=== PATIENT | male | born 1950 | race Hispanic/Latino ===

== ENCOUNTER → 2017-10-27 | Outpatient (CLI) | payer OTHER ==
[2017-10-27 09:37] LABS: APPEARANCE,URINE Clear (CLEAR); BILIRUBIN,URINE Negative (NEGATIVE); COLOR,URINE Yellow (YELLOW); GLUCOSE, URINE (UA) Negative (NEGATIVE); KETONES,URINE Negative (NEGATIVE); LEUKOCYTE ESTERASE ,URINE Negative (NEGATIVE); NITRATE,URINE Negative (NEGATIVE); OCCULT BLOOD,URINE Trace (NEGATIVE); PH,URINE 5.5 (5.0-8.0); PROTEIN,URINE Negative (NEGATIVE); UROBILINOGEN,URINE 0.2 mg/dL (0.2-1.0)
[2017-10-27 09:44] LABS: BACTERIA,URINE Rare /HPF (None Seen); RBC,URINE 0-1 /HPF (0-1); SQUAMOUS EPITHELIAL CELL,UR Rare /HPF (0-2); WBC,URINE 0-1 /HPF (0-1)
[2017-10-27 09:50] LABS: ALBUMIN 3.8 g/dL (3.5-5.0); BILIRUBIN,TOTAL 0.7 mg/dL (0.2-1.0); CREATININE 1.5 mg/dL (0.5-1.5); TOTAL PROTEIN, SERUM 7.8 g/dL (6.0-8.3)
== END | disposition home or self-care (01) ==
LOC: RAH 08:01
PROVIDERS: ATTEND Orthopaedic Surgery
DX: I25.9 Chronic ischemic heart disease, unspecified (principal); E11.51 Type 2 diabetes mellitus with diabetic peripheral angiopathy without gangrene; I10 Essential (primary) hypertension; E78.5 Hyperlipidemia, unspecified; Z87.891 Personal history of nicotine dependence
CPT/HCPCS: 36415; 80053; 81001; 82043; 93306; 93922

== ENCOUNTER 2018-06-12 20:22 | Inpatient (IN) | payer OTHER ==
[~2018-06-12] VITALS: Ht 180.3 cm; Wt 103.6 kg
[2018-06-12 21:16] LABS: BASOPHILS % (AUTO) 0.6 % (0.0-5.0); EOSINOPHILS % (AUTO) 2.9 % (0.0-8.0); MEAN CORPUSCULAR HEMOGLOBIN 33.5 pg (27.0-33.0); MEAN CORPUSCULAR HGB CONC 34.8 g/dL (32.0-36.0); MEAN CORPUSCULAR VOLUME 96.5 fL (79-99); MONOCYTES % (AUTO) 10.2 % (3.0-13.0); NEUTROPHILS % (AUTO) 64.3 % (40.0-77.0); NUCLEATED RED BLOOD CELLS 0.1 % (0.0-0.19); PLATELET COUNT (AUTO) 127 K/uL (130-400); RED BLOOD CELL COUNT(AUTO) 3.63 MIL/uL (4.50-6.20); RED CELL DISTRIBUTION WIDTH 13.6 % (11.0-15.5); WHITE BLOOD COUNT (AUTO) 5.1 K/uL (4.8-10.8)
[2018-06-12 21:18] LABS: CREATININE 2.6 mg/dL (0.5-1.5); POTASSIUM 5.1 mmol/L (3.5-5.1)
[2018-06-12 21:23] LABS: ALBUMIN 3.5 g/dL (3.5-5.0); BILIRUBIN,TOTAL 0.3 mg/dL (0.2-1.0); TOTAL PROTEIN, SERUM 7.6 g/dL (6.0-8.3)
[2018-06-12 21:31] LABS: INR 4.49 (0.85-1.15); PROTHROMBIN TIME 45.8 SEC (9.6-11.6)
[2018-06-12 21:44] LABS: B-TYPE NATRIURETIC PEPTIDE 296 pg/mL (0-100)
[2018-06-12 21:48] LABS: CREATINE KINASE, TOTAL 83 U/L (21-232); MYOGLOBIN 274 ng/mL (10-92); TROPONIN I < 0.04 ng/mL (0.00-0.06)
[2018-06-13] MEDS ORDERED: ATROPINE SULFATE 0.1 MG/ML 10 ML SYG IVP ONE (01:13)
[2018-06-13] MEDS ORDERED: ONDANSETRON HCL 4 MG/2 ML VIAL IV PRN (01:45)
[2018-06-13] MEDS ORDERED: ACETAMINOPHEN 325 MG TAB PO PRN ×2 (01:45)
[2018-06-13 04:25] VITALS: BP 111/57
[2018-06-13] MEDS ORDERED: FURO20TA4 PO (04:50)
[2018-06-13] MEDS ORDERED: SERT100T12 PO (04:50)
[2018-06-13] MEDS ORDERED: LISI2.5T2 PO (04:50)
[2018-06-13] MEDS ORDERED: DILT180C88 PO (04:50)
[2018-06-13] MEDS ORDERED: OMEG-148 PO (04:50)
[2018-06-13] MEDS ORDERED: FOLI-114 PO (04:50)
[2018-06-13] MEDS ORDERED: METO100T14 PO (04:50)
[2018-06-13] MEDS ORDERED: WARF2.5T85 PO (04:50)
[2018-06-13] MEDS ORDERED: METF-446 PO (04:50)
[2018-06-13] MEDS ORDERED: DOXY100T2 PO (04:50)
[2018-06-13] MEDS ORDERED: METO50TA18 PO (04:50)
[2018-06-13] MEDS ORDERED: WARF-57 PO (04:50)
[2018-06-13] MEDS ORDERED: SPIR100T5 PO (04:50)
[2018-06-13] MEDS ORDERED: FOLI1TAB15 PO (04:50)
[2018-06-13] MEDS ORDERED: CHOL400C9 PO (04:50)
[2018-06-13] MEDS ORDERED: THIA500T3 PO (04:50)
[2018-06-13] MEDS ORDERED: DEXTROSE 50%-WATER 50 ML DISP.SYRIN IV PRN (05:00)
[2018-06-13] MEDS ORDERED: GLUCAGON 1MG KIT 1 MG ML IM PRN (05:00)
[2018-06-13] MEDS: INSULIN HUMULIN R 100 UNIT/ML 3ML SQ SCH ×4 (06:02→21:00)
[2018-06-13 07:00] VITALS: BP 113/67
[2018-06-13] MEDS: FAMOTIDINE/PF 20 MG/2 ML VIAL IV SCH (08:44)
[2018-06-13] MEDS ORDERED: FUROSEMIDE 10 MG/ML 2ML VIAL IV SCH (09:00)
[2018-06-13 11:00] VITALS: BP 107/62
--- NOTE | 2018-06-13 14:58 | NUR ---
DCP CM met with pt discussed dc plans. Pt is independent prior to admission, lives at home alone. Denies any equipments/services. Pt feels safe to go back home, still drives, sister Latoya Eli able to assist with transportation and needs as necessary. DC plan to home once stable. CM to cont to follow up. Addendum: 06/13/18 at 1500 by YUDELKA MARES LVN CM Amended: Links added.
[2018-06-13 16:00] VITALS: BP 103/54
[2018-06-13 19:05] VITALS: BP 118/63
[2018-06-13] MEDS: VITAMIN D3 PO SCH (20:14)
[2018-06-13] MEDS: METOPROLOL TARTRATE 50 MG TAB PO SCH (20:14)
[2018-06-14] VITALS (7 sets, daily range): BP systolic 115–131; BP diastolic 57–88
[2018-06-14 05:01] LABS: HEMATOCRIT 30.9 % (42-54); MEAN CORPUSCULAR HEMOGLOBIN 34.1 pg (27.0-33.0); MEAN CORPUSCULAR VOLUME 97.4 fL (79-99); NUCLEATED RED BLOOD CELLS 0.2 % (0.0-0.19); PLATELET COUNT (AUTO) 72 K/uL (130-400); RED BLOOD CELL COUNT(AUTO) 3.18 MIL/uL (4.50-6.20); RED CELL DISTRIBUTION WIDTH 13.3 % (11.0-15.5); WHITE BLOOD COUNT (AUTO) 2.5 K/uL (4.8-10.8)
[2018-06-14 05:06] LABS: CREATININE 1.9 mg/dL (0.5-1.5); POTASSIUM 4.7 mmol/L (3.5-5.1)
[2018-06-14 05:07] LABS: INR 2.06 (0.85-1.15); PROTHROMBIN TIME 21.3 SEC (9.6-11.6)
[2018-06-14 05:19] LABS: EOSINOPHILS % (MANUAL) 7 % (1-6); LYMPHOCYTES % (MANUAL) 32 % (22-44); MAN.DIFF COMMENT-IMPRESSION MANUAL DIFFERENTIAL; MONOCYTES % (MANUAL) 5 % (2-9); SEGMENTED NEUTROPHILS % 56 % (40-70)
[2018-06-14 05:20] LABS: PLATELET MORPHOLOGY COMMENT SLIGHTLY DECREASED
[2018-06-14] MEDS: INSULIN HUMULIN R 100 UNIT/ML 3ML SQ SCH ×3 (06:03→20:29)
[2018-06-14] MEDS: FOLIC ACID 1 MG TABLET PO SCH (08:21)
[2018-06-14] MEDS: VITAMIN D3 PO SCH ×2 (08:21→20:25)
[2018-06-14] MEDS: FAMOTIDINE/PF 20 MG/2 ML VIAL IV SCH (08:21)
[2018-06-14] MEDS: [UNRECOGNIZED DRUG - OTHER] PO SCH (08:21)
[2018-06-14] MEDS: FUROSEMIDE 20 MG TABLET PO SCH (08:21)
[2018-06-14] MEDS: SERTRALINE HCL 50 MG TABLET PO SCH (08:21)
[2018-06-14] MEDS: SPIRONOLACTONE 25 MG TAB PO SCH (08:22)
[2018-06-14] MEDS: DILTIAZEM HCL 180 MG CAP.SR.24H PO SCH (08:22)
[2018-06-14] MEDS: METOPROLOL TARTRATE 50 MG TAB PO SCH (20:25)
[2018-06-15 04:17] VITALS: BP 112/65
[2018-06-15 04:24] LABS: INR 1.39 (0.85-1.15); PROTHROMBIN TIME 14.5 SEC (9.6-11.6)
[2018-06-15] MEDS: INSULIN HUMULIN R 100 UNIT/ML 3ML SQ SCH ×4 (06:21→21:23)
[2018-06-15 07:55] VITALS: BP 119/67
[2018-06-15] MEDS: SERTRALINE HCL 50 MG TABLET PO SCH (08:24)
[2018-06-15] MEDS: FAMOTIDINE/PF 20 MG/2 ML VIAL IV SCH (08:24)
[2018-06-15] MEDS: FUROSEMIDE 20 MG TABLET PO SCH (08:25)
[2018-06-15] MEDS: FOLIC ACID 1 MG TABLET PO SCH (08:25)
[2018-06-15] MEDS: DILTIAZEM HCL 180 MG CAP.SR.24H PO SCH (08:26)
[2018-06-15] MEDS: VITAMIN D3 PO SCH ×2 (08:26→21:00)
[2018-06-15] MEDS: SPIRONOLACTONE 25 MG TAB PO SCH (08:26)
[2018-06-15] MEDS: [UNRECOGNIZED DRUG - OTHER] PO SCH (08:26)
[2018-06-15 11:22] VITALS: BP 128/73
[2018-06-15] MEDS ORDERED: ENOXAPARIN SODIUM 100 MG/1 ML SQ SCH (11:45)
[2018-06-15] MEDS ORDERED: WARFARIN SODIUM 2.5 MG TAB PO SCH ×2 (11:45→16:00)
[2018-06-15 12:43] LABS: BASOPHILS % (AUTO) 1.2 % (0.0-5.0); EOSINOPHILS % (AUTO) 4.4 % (0.0-8.0); HEMATOCRIT 35.1 % (42-54); MEAN CORPUSCULAR HEMOGLOBIN 34.6 pg (27.0-33.0); MEAN CORPUSCULAR HGB CONC 34.5 g/dL (32.0-36.0); MEAN CORPUSCULAR VOLUME 100.2 fL (79-99); MONOCYTES % (AUTO) 8.3 % (3.0-13.0); NEUTROPHILS % (AUTO) 58.1 % (40.0-77.0); NUCLEATED RED BLOOD CELLS 0.1 % (0.0-0.19); PLATELET COUNT (AUTO) 80 K/uL (130-400); RED BLOOD CELL COUNT(AUTO) 3.51 MIL/uL (4.50-6.20); RED CELL DISTRIBUTION WIDTH 13.6 % (11.0-15.5); WHITE BLOOD COUNT (AUTO) 3.6 K/uL (4.8-10.8)
[2018-06-15 16:00] VITALS: BP 115/75
[2018-06-15 20:05] VITALS: BP 115/59
[2018-06-15] MEDS: METOPROLOL TARTRATE 50 MG TAB PO SCH (21:10)
[2018-06-15] MEDS: ENOXAPARIN SODIUM 100 MG/1 ML SQ SCH (22:35)
[2018-06-15 23:41] VITALS: BP 116/81
[2018-06-16 04:00] VITALS: BP 103/53
[2018-06-16 04:12] LABS: INR 1.28 (0.85-1.15); PARTIAL THROMBOPLASTIN TIME 38.5 SEC (26.3-35.5); PROTHROMBIN TIME 13.4 SEC (9.6-11.6)
[2018-06-16] MEDS: INSULIN HUMULIN R 100 UNIT/ML 3ML SQ SCH ×4 (06:50→20:55)
[2018-06-16 08:00] VITALS: BP 119/67
[2018-06-16] MEDS: SPIRONOLACTONE 25 MG TAB PO SCH ×2 (09:00→09:30)
[2018-06-16] MEDS: VITAMIN D3 PO SCH ×2 (09:00→19:18)
[2018-06-16] MEDS: [UNRECOGNIZED DRUG - OTHER] PO SCH (09:00)
[2018-06-16] MEDS: WARFARIN SODIUM 5 MG TAB PO SCH (09:16)
[2018-06-16] MEDS: FUROSEMIDE 20 MG TABLET PO SCH (09:17)
[2018-06-16] MEDS: ENOXAPARIN SODIUM 100 MG/1 ML SQ SCH ×2 (09:18→19:37)
[2018-06-16] MEDS: FAMOTIDINE/PF 20 MG/2 ML VIAL IV SCH (09:19)
[2018-06-16] MEDS: DILTIAZEM HCL 180 MG CAP.SR.24H PO SCH (09:20)
[2018-06-16] MEDS: SERTRALINE HCL 50 MG TABLET PO SCH (09:21)
[2018-06-16] MEDS: FOLIC ACID 1 MG TABLET PO SCH (09:21)
[2018-06-16 11:00] VITALS: BP 130/73
[2018-06-16] MEDS ORDERED: WARFARIN SODIUM 2 MG TAB PO SCH (12:00)
--- NOTE | 2018-06-16 15:26 | NUR ---
Nutrition Intervention: Nutrition consult for Coumadin education. Pt. admitted with Dx of Hypotension, Hx A. Fib. on [place]. Pt. on 60gm CCD diet, 1200ml fluid Rest. with good p.o. intake, as per pt. Labs reviewed(Alb 3.5). LBM: 06/15/18. SR-21, elastic. BMI: 32.2, overweight for age. Pt. educated on Diabetic diet and Coumadin food-drug interaction with Vit k foods and provided with education material. Pt. verbalized understanding. Recommendations: 1) Rec. 2gm Na 60gm CCD diet. 2) Diabetic diet and Coumadin food-drug interaction with Vit k foods education given to patient. 3) Continue to monitor pt's nutritional status. 4) Consult RD as nutrition concerns arise. Addendum: 06/16/18 at [address] Amended: Links added.
[2018-06-16 16:00] VITALS: BP 118/64
[2018-06-16] MEDS: METOPROLOL TARTRATE 50 MG TAB PO SCH (19:35)
[2018-06-16 19:50] VITALS: BP 112/59
[2018-06-16 23:46] VITALS: BP 119/67
[2018-06-17 04:00] VITALS: BP 137/83
[2018-06-17 05:08] LABS: INR 1.38 (0.85-1.15); PROTHROMBIN TIME 14.4 SEC (9.6-11.6)
[2018-06-17] MEDS: INSULIN HUMULIN R 100 UNIT/ML 3ML SQ SCH ×4 (06:47→21:00)
[2018-06-17 08:00] VITALS: BP 116/85
[2018-06-17] MEDS: VITAMIN D3 PO SCH ×2 (09:00→21:00)
[2018-06-17] MEDS: [UNRECOGNIZED DRUG - OTHER] PO SCH (09:00)
[2018-06-17] MEDS: SPIRONOLACTONE 25 MG TAB PO SCH (09:05)
[2018-06-17] MEDS: FUROSEMIDE 20 MG TABLET PO SCH (09:05)
[2018-06-17] MEDS: SERTRALINE HCL 50 MG TABLET PO SCH (09:05)
[2018-06-17] MEDS: ENOXAPARIN SODIUM 100 MG/1 ML SQ SCH ×2 (09:05→21:55)
[2018-06-17] MEDS: DILTIAZEM HCL 180 MG CAP.SR.24H PO SCH (09:06)
[2018-06-17] MEDS: FAMOTIDINE/PF 20 MG/2 ML VIAL IV SCH (09:06)
[2018-06-17] MEDS: FOLIC ACID 1 MG TABLET PO SCH (09:06)
[2018-06-17] MEDS: WARFARIN SODIUM 5 MG TAB PO SCH (10:57)
[2018-06-17 11:00] VITALS: BP 143/68
[2018-06-17] MEDS ORDERED: WARFARIN SODIUM 7.5 MG TAB PO SCH (12:00)
[2018-06-17 16:00] VITALS: BP 139/83
[2018-06-17 19:51] VITALS: BP 124/74
[2018-06-17] MEDS: METOPROLOL TARTRATE 50 MG TAB PO SCH (21:54)
[2018-06-17 23:35] VITALS: BP 118/65
[2018-06-18 04:20] VITALS: BP 111/69
[2018-06-18 05:38] LABS: HEMATOCRIT 29.5 % (42-54); MEAN CORPUSCULAR HGB CONC 35.3 g/dL (32.0-36.0); MEAN CORPUSCULAR VOLUME 96.5 fL (79-99); NUCLEATED RED BLOOD CELLS 0.4 % (0.0-0.19); PLATELET COUNT (AUTO) 69 K/uL (130-400); RED BLOOD CELL COUNT(AUTO) 3.06 MIL/uL (4.50-6.20); RED CELL DISTRIBUTION WIDTH 13.8 % (11.0-15.5); WHITE BLOOD COUNT (AUTO) 2.9 K/uL (4.8-10.8)
[2018-06-18 05:44] LABS: INR 1.6 (0.85-1.15); PROTHROMBIN TIME 16.6 SEC (9.6-11.6)
[2018-06-18 05:54] LABS: BAND NEUTROPHILS % (MANUAL) 4 % (0-2); EOSINOPHILS % (MANUAL) 4 % (1-6); LYMPHOCYTES % (MANUAL) 48 % (22-44); MAN.DIFF COMMENT-IMPRESSION MANUAL DIFFERENTIAL; MONOCYTES % (MANUAL) 12 % (2-9); SEGMENTED NEUTROPHILS % 32 % (40-70)
[2018-06-18 05:55] LABS: PLATELET MORPHOLOGY COMMENT DECREASED
[2018-06-18] MEDS: INSULIN HUMULIN R 100 UNIT/ML 3ML SQ SCH ×4 (06:02→20:51)
[2018-06-18 07:30] VITALS: BP 119/62
[2018-06-18] MEDS: SPIRONOLACTONE 25 MG TAB PO SCH (08:19)
[2018-06-18] MEDS: FAMOTIDINE/PF 20 MG/2 ML VIAL IV SCH (08:19)
[2018-06-18] MEDS: FOLIC ACID 1 MG TABLET PO SCH (08:19)
[2018-06-18] MEDS: SERTRALINE HCL 50 MG TABLET PO SCH (08:20)
[2018-06-18] MEDS: FUROSEMIDE 20 MG TABLET PO SCH (08:20)
[2018-06-18] MEDS: VITAMIN D3 PO SCH ×2 (08:21→20:52)
[2018-06-18] MEDS: [UNRECOGNIZED DRUG - OTHER] PO SCH (08:21)
[2018-06-18] MEDS: ENOXAPARIN SODIUM 100 MG/1 ML SQ SCH ×2 (08:21→20:22)
[2018-06-18] MEDS: DILTIAZEM HCL 180 MG CAP.SR.24H PO SCH (09:00)
--- NOTE | 2018-06-18 09:00 | NUR ---
HELD DILTIAZEM MEDICATION HELD DUE TO BLOOD PRESSURE OF 119/62. PER MD, HOLD BP MEDICATIONS IF SBP LESS THAN 130.
[2018-06-18 11:19] VITALS: BP 114/75
[2018-06-18] MEDS: WARFARIN SODIUM 5 MG TAB PO SCH (16:00)
[2018-06-18 16:07] VITALS: BP 120/70
[2018-06-18] MEDS: WARFARIN SODIUM 7.5 MG TAB PO SCH (17:01)
[2018-06-18 19:25] VITALS: BP 124/60
[2018-06-18] MEDS: METOPROLOL TARTRATE 50 MG TAB PO SCH (20:19)
[2018-06-18 23:18] VITALS: BP 111/75
[2018-06-19 03:35] VITALS: BP 113/61
[2018-06-19 05:49] LABS: INR 1.78 (0.85-1.15); PROTHROMBIN TIME 18.5 SEC (9.6-11.6)
[2018-06-19 07:24] VITALS: BP 134/80
[2018-06-19] MEDS: INSULIN HUMULIN R 100 UNIT/ML 3ML SQ SCH ×2 (07:30→11:30)
[2018-06-19] MEDS: WARFARIN SODIUM 7.5 MG TAB PO SCH (07:44)
[2018-06-19] MEDS: FAMOTIDINE/PF 20 MG/2 ML VIAL IV SCH (08:08)
[2018-06-19] MEDS: SPIRONOLACTONE 25 MG TAB PO SCH (08:08)
[2018-06-19] MEDS: FOLIC ACID 1 MG TABLET PO SCH (08:09)
[2018-06-19] MEDS: DILTIAZEM HCL 180 MG CAP.SR.24H PO SCH (08:09)
[2018-06-19] MEDS: SERTRALINE HCL 50 MG TABLET PO SCH (08:10)
[2018-06-19] MEDS: FUROSEMIDE 20 MG TABLET PO SCH (08:10)
[2018-06-19] MEDS: VITAMIN D3 PO SCH (08:12)
[2018-06-19] MEDS: [UNRECOGNIZED DRUG - OTHER] PO SCH (08:12)
[2018-06-19 09:10] LABS: BASOPHILS % (AUTO) 0.6 % (0.0-5.0); EOSINOPHILS % (AUTO) 4.8 % (0.0-8.0); HEMATOCRIT 34.2 % (42-54); LYMPHOCYTES % (AUTO) 25.3 % (21.0-51.0); MEAN CORPUSCULAR HEMOGLOBIN 34.3 pg (27.0-33.0); MEAN CORPUSCULAR HGB CONC 35.3 g/dL (32.0-36.0); MEAN CORPUSCULAR VOLUME 97.2 fL (79-99); MONOCYTES % (AUTO) 11.5 % (3.0-13.0); NEUTROPHILS % (AUTO) 57.8 % (40.0-77.0); NUCLEATED RED BLOOD CELLS 0.2 % (0.0-0.19); PLATELET COUNT (AUTO) 73 K/uL (130-400); RED BLOOD CELL COUNT(AUTO) 3.52 MIL/uL (4.50-6.20); RED CELL DISTRIBUTION WIDTH 13.4 % (11.0-15.5)
[2018-06-19 09:19] LABS: CREATININE 1.4 mg/dL (0.5-1.5); POTASSIUM 4.5 mmol/L (3.5-5.1)
[2018-06-19 09:44] LABS: EOSINOPHILS % (MANUAL) 6 % (1-6); LYMPHOCYTES % (MANUAL) 34 % (22-44); MAN.DIFF COMMENT-IMPRESSION MANUAL DIFFERENTIAL; MONOCYTES % (MANUAL) 10 % (2-9); REACTIVE LYMPHOCYTES 2 % (0-0); SEGMENTED NEUTROPHILS % 48 % (40-70)
[2018-06-19] MEDS: ENOXAPARIN SODIUM 100 MG/1 ML SQ SCH (11:05)
[2018-06-19 11:44] VITALS: BP 124/61
--- NOTE | 2018-06-19 14:47 | NUR ---
Discharge teaching completed in the room with pt. Emphasis on dx, s/s to monitor for, when to seek emergency care and when to dial 911. Emphasis on Coumadin education, regarding diet, importance of having pt/inr checked on regular basis, and taking medication exactly as prescribed. Pt is to follow up with Dr. Donavon Francisco on 06/21 @ 3:00 pm for continuation of care. Pt voiced understanding of all instructions, all questions addressed. PIV removed, tip intact. Extra pressure applied due to bleeding after removal. Dressed with sterile 2x2 and band aid after hemostasis. No new rx. Per Shereen Altamirano NP, pt is to resume all previous home medications, including home dose of coumadin. Pt wheeled to front lobby by [facility] staff for transport home via private car. Pt in stable condition at time of discharge.
[2018-06-19] MEDS ORDERED: WARFARIN SODIUM 7.5 MG TAB PO SCH (15:00)
[2018-06-19] MEDS ORDERED: WARFARIN SODIUM 5 MG TAB PO SCH (16:00)
== END 2018-06-19 14:52 | disposition home or self-care (01) | DRG 683 ==
LOC: EDH 20:22 → EDHIP 06-13 01:20 → 4AH 06-13 04:19 → 4CH 06-19 10:35
PROVIDERS: ADMIT Hospitalist; ATTEND Hospitalist
DX: N17.0 Acute kidney failure with tubular necrosis (principal); I13.0 Hypertensive heart and chronic kidney disease with heart failure and stage 1 through stage 4 chronic kidney disease, or unspecified chronic kidney disease; I50.22 Chronic systolic (congestive) heart failure; I48.91 Unspecified atrial fibrillation; E11.22 Type 2 diabetes mellitus with diabetic chronic kidney disease; N18.3 Chronic kidney disease, stage 3 (moderate); Z79.01 Long term (current) use of anticoagulants; Z79.4 Long term (current) use of insulin; Z85.46 Personal history of malignant neoplasm of prostate; Z93.3 Colostomy status; I95.9 Hypotension, unspecified
CPT/HCPCS: 36415; 71045; 80048; 80053; 82550; 82948; 83874; 83880; 84484; 85025; 85027; 85610; 85730; 93005; 93306; 93880; G0378; J0461; J1650; J1815; J1940; J3490

== ENCOUNTER → 2022-05-18 | Outpatient (CLI) | payer OTHER ==
[~2022-05-18] MED LIST: ALBU8.5H8 IH; ALLO100T PO; CARV12.511 PO; FERR324T PO; FOLI0.4T6 PO; FURO40TA5 PO; GABA600T10 PO; GADOTERATE MEGLUMINE 10 MMOL/20 ML VIAL IV ONE; LEUP1KIT SQ; LISI5TAB21 PO; METF-446 PO; OMEG1CAP2 PO; SERT-440 PO; SPIR25TA6 PO; THIA100T91 PO; VITAD400 GT; WARF-57 PO; WARF2.5T85 PO
== END | disposition home or self-care (01) ==
LOC: RAH 05-17 07:41
PROVIDERS: ATTEND Surgery Surgical Oncology
DX: C22.0 Liver cell carcinoma (principal); R16.0 Hepatomegaly, not elsewhere classified
CPT/HCPCS: 74183; A9575

== ENCOUNTER 2024-01-05 01:01 | Inpatient (IN) | payer OTHER ==
[~2024-01-05] VITALS: Ht 180.3 cm; Wt 106.1 kg
[2024-01-05 03:24] LABS: CREATININE 1.7 mg/dL (0.5-1.3); POTASSIUM 4.6 mmol/L (3.5-5.1)
[2024-01-05] MEDS ORDERED: GUAI10LI14 PEG (03:27)
[2024-01-05] MEDS ORDERED: ALBU18HF7 IH (03:27)
[2024-01-05] MEDS ORDERED: ALLO100T PEG (03:27)
[2024-01-05] MEDS ORDERED: DILT60TA3 PEG (03:27)
[2024-01-05] MEDS ORDERED: LACT10SO9 PEG (03:27)
[2024-01-05] MEDS ORDERED: IPRA0.2S54 NEB (03:27)
[2024-01-05] MEDS ORDERED: SERT-438 PEG (03:27)
[2024-01-05] MEDS ORDERED: LATA2.5D14 OU (03:27)
[2024-01-05] MEDS ORDERED: THIA50TA13 PEG (03:27)
[2024-01-05] MEDS ORDERED: HYDR-3421 PEG (03:27)
[2024-01-05] MEDS ORDERED: APIX2.5T PEG (03:27)
[2024-01-05] MEDS ORDERED: FERR324T4 PEG (03:27)
[2024-01-05] MEDS ORDERED: FURO40TA7 PEG (03:27)
[2024-01-05] MEDS ORDERED: METO25TA6 PEG (03:27)
[2024-01-05 03:28] LABS: BASOPHILS # (AUTO) 0.02 K/uL (0.00-0.20); BASOPHILS % (AUTO) 0.4 % (0.0-5.0); EOSINOPHILS # (AUTO) 0.39 K/uL (0.00-0.70); EOSINOPHILS % (AUTO) 7.9 % (0.0-8.0); HEMATOCRIT 25.9 % (42-54); IMMATURE GRANULOCYTE ABSOLUTE 0.03 K/uL (0-1); LYMPHOCYTES # (AUTO) 0.8 K/uL (1.0-4.8); LYMPHOCYTES % (AUTO) 16.8 % (21.0-51.0); MEAN CORPUSCULAR HEMOGLOBIN 35.2 pg (27.0-33.0); MEAN CORPUSCULAR VOLUME 109.7 fL (79-99); MONOCYTES # (AUTO) 0.4 K/uL (0.1-1.0); MONOCYTES % (AUTO) 7.9 % (3.0-13.0); NEUTROPHILS # (AUTO) 3.3 K/uL (1.8-7.7); NEUTROPHILS % (AUTO) 66.4 % (40.0-77.0); PLATELET COUNT (AUTO) 49 K/uL (130-400); RED BLOOD CELL COUNT(AUTO) 2.36 MIL/uL (4.50-6.20); RED CELL DISTRIBUTION WIDTH 20.5 % (11.0-15.5); WHITE BLOOD COUNT (AUTO) 4.9 K/uL (4.8-10.8)
--- NOTE | 2024-01-05 03:31 | ERN ---
ED Note History of Present Illness Stated Complaint: DISLODGED DALTON Chief Complaint: Other Problems Time Seen by MD: 01:19 Dictation: This is a 73-year-old chronically ill male from a half-way was sent to the emergency room as his suprapubic catheter was dislodged. He had urinary retention and was uncomfortable it was unclear from the report how many hours had elapsed. There is no history of any hematuria dysuria. Patient is a very poor historian and history is limited Afebrile heart rate of 90 respirations 16 blood pressure 131/90 with a pulse oximetry of 100% on room air His chronic medical problems include atrial fibrillation, prostate cancer since 10/01, diabetes mellitus, hypercholesterolemia and hypertension. Allergies: Coded Allergies: iodine (Verified Allergy, Severe, ANAPHYLAXIS, 12/02/19) clindamycin (Unverified Allergy, Intermediate, 12/02/23) ceftriaxone (Unverified Allergy, Mild, 12/04/19) doxycycline (Unverified Allergy, Mild, 12/04/19) vancomycin (Unverified Allergy, Unknown, 12/03/19) Uncoded Allergies: Clindamyci (Allergy, Intermediate, SWELLING, 12/02/19) Home Meds No Active Prescriptions or Reported Meds Past Medical History Past Medical History: A-Fib, Cancer, Diabetes-Type II, High Cholesterol, Hypertension Additional Past Medical Hx: PROSTATE CA 07/02/2010 Surgical History: Other Surgical History Other: LIVER BIOPSY 04/15, PEG TUBE, SUPRABPUBIC CATHETER, PNEUMOTHORACIC ABCESS Family History: Negative Social History: Negative RN Note Reviewed/Agreed w/PFSH: Yes Review of System Dictation Constitutional: Negative for fever,chills, and weight loss Eyes: Negative for injury, pain,redness, and discharge ENT: Negative for injury,pain or swelling Cardiovascular: Negative for chest pain, palpitations, and edema Respiratory: Negative for shortness of breath, cough, and wheezing, Abdomen/GI: Negative for abdominal pain, nausea, vomiting, diarrhea, and constipation Back: Negative for injury and pain : Negative for injury, bleeding and discharge MS/Extremity: Negative for injury and deformity Skin: Negative for rash, and discoloration Neuro: Negative for headache, weakness, numbness, tingling, and seizure Psych: Negative for suicide ideation, homicidal ideation, and hallucinations Initial Vital Sign VS Vital Signs Date Time Temp Pulse Resp B/P (MAP) Pulse Ox O2 Delivery O2 Flow Rate FiO2 01/05/24 01:07 90 16 131/90 100 Room Air 0 Physical Exam Dictation General: awake, alert, NAD Head/Face: Normocephalic, atraumatic Eyes: PERRL, EOMI, vision at baseline ENT: oral cavity clear, TMs clear, no signs of infection Neck: Trachea midline, supple, no nuchal rigidity Cardiovascular: RRR, normal S1/S2, No MRGs, no JVD Respiratory: CTAB, no respiratory distress, No rales or wheezes Abdomen: Soft, non-tender, non-distended, normal bowel sounds, no guarding or rebound. Obese abdomen with multiple healed scars in the midabdomen area. Horizontal incision with multiple shubham in the suprapubic area with small amount of purulent drainage from the stoma noted. There was an area which appeared to be dehiscing and some of the shubham came loose. Skin: Warm, dry, normal turgor, no rash MS/Extremity: Pulses equal, no cyanosis, neurovascular intact, FROM Neuro: COAx4, GCS 15, strength 5/5, CN 2-12 intact, normal cerebellar exam, normal gait, Psych: Normal behavior, mood, and affect normal Extremities-1+ edema without any palpable cords, Homans sign is negative Results (Laboratory/Radiology) Labs Reviewed?: Yes ED Course ED Course Orders Procedure Category Date Status Time Cbc With Differential LAB 01/05/24 In Process 02:52 Basic Metabolic Panel LAB 01/05/24 In Process 02:52 Urinalysis Profile LAB 01/05/24 In Process Catherized 02:52 Edm Admit Bridge Order ADM 01/05/24 Transmitted 03:17 Admit Orders ADM 01/05/24 Transmitted 03:17 Vital Signs Date Time Temp Pulse Resp B/P (MAP) Pulse Ox O2 Delivery O2 Flow Rate FiO2 01/05/24 01:07 90 16 131/90 100 Room Air 0 We will perform diagnostic labs, advanced imaging and administer medications according to the patient's complaint. Once the results are available, will review and personally interpreted the labs to rule out any acute life- threatening emergency the trach require immediate intervention and treatment. I will then re-evaluate the patient after treatment and diagnostic exams have return to determine whether the patient requires any further testing, can safely be discharged home or need further admission to hospital for additional treatment and evaluation. I have attempted to replace the suprapubic catheter without any success. There was a resistance and hence the procedure was aborted. Dalton catheter was placed and patient will be admitted overnight and Dr. Locke, urologist we will be consulted for replacement of a suprapubic catheter. Patient and family are agreeable and appreciated. Since I plan to admit him I have requested CBC BNP 7 and urinalysis which are pending at this time. Patient was accepted by the hospitalist group nurse practitioner patricia for monitoring overnight and pursuing a new suprapubic catheter placement. Medical Decision Making MDM MDM: Differential diagnosis: Urinary retention, suprapubic catheter dislodgement, UTI Rationale: Tests considered and ordered secondary to shared decision making include: labs, ECG and radiology Previous outside records reviewed: Old ER visits. Risk of complication and/or morbidity or mortality of patient management: None Medications-Per medication reconciliation Need for hospitalization: Patient does meet criteria for hospitalization. Need for emergency major/minor surgery: No There are no social concerns with this patient. Prescription drug management Prescriptions will include symptomatic care Patient's prior external medical records from other ER visits were reviewed by me as indicated. Prior testing and results from previous visits were reviewed. Prior tests were taken into account with medical decision making and resource utilization, independent historian/historians were used to obtain complete me dical history. I independently interpreted the test that were performed, results were reviewed by me and considered findings on radiology if ordered. Medical management and examination interpretation discussions were had by me with other qualified healthcare professionals as indicated for the patient's care. Problem List Problem List: (1) Suprapubic catheter dysfunction (2) Urinary retention (3) Prostate cancer (4) Atrial fibrillation DX & DISP Disposition: Inpatient Decision to Admit Time: 03:15 Departure Impression: Primary Impression: Suprapubic catheter dysfunction Additional Impressions: Urinary retention, Prostate cancer Condition: Stable Scripts No Active Prescriptions or Reported Meds Additional Instructions: Patient was informed of all the diagnostic labs and procedures conducted in the emergency room today and demonstrated understanding of the results. I personally reviewed and interpreted all the diagnostic exams performed in the ER today. The patient will be admitted to the hospital for further treatment and evaluation. Disposition-admit to facility Condition-stable/guarded Course-uncertain at this time Pain status-decreased Assessment-exam unchanged Admission Certification- I certify that the patients status is appropriate and is based on my best clinical judgment and the patient's condition as documented in the medical records Referrals: YUMI DOMINGUEZ MD (PCP) LULI FAJARDO MD Jan 05, 2024 03:31
[2024-01-05 03:36] LABS: ADD UA MICROSCOPIC YES; APPEARANCE,URINE TURBID (CLEAR); BILIRUBIN,URINE NEGATIVE (NEGATIVE); COLOR,URINE DARK-BROWN (YELLOW); GLUCOSE, URINE (UA) NEGATIVE (NEGATIVE); KETONES,URINE NEGATIVE (NEGATIVE); LEUKOCYTE ESTERASE ,URINE 250 Leu/uL (NEGATIVE); NITRATE,URINE NEGATIVE (NEGATIVE); OCCULT BLOOD,URINE LARGE (NEGATIVE); PROTEIN,URINE 70 mg/dL (NEGATIVE); UROBILINOGEN,URINE 0.2 mg/dL (0.2-1.0)
[2024-01-05 03:37] LABS: BACTERIA,URINE FEW /HPF (None Seen); MUCUS,URINE RARE LPF (None Seen); RBC,URINE TNTC /HPF (0-1)
[2024-01-05] MEDS ORDERED: acetaMINOPHEN 325 MG TAB PO PRN ×2 (04:00)
[2024-01-05] MEDS ORDERED: ondanSETRON 4MG INJ IV PRN (04:00)
[2024-01-05 04:23] LABS: PLATELET MORPHOLOGY COMMENT PLT CLUMPS PRESENT
--- NOTE | 2024-01-05 06:02 | HP ---
[facility] HISTORY AND PHYSICAL Date of Service: Jan 05, 2024 Time of Service: 05:37 HISTORY OF PRESENT ILLNESS: This is a 73-year-old chronically ill looking male a resident of [facility] with past medical history of hepatocellular carcinoma status post chemoembolization on chemotherapy, hypertension, hyperlipidemia, diabetes, CVA, gout, prostate cancer with chronic suprapubic catheter use, artificial urinary sphincter, coronary artery disease atrial fibrillation and CHF who was brought to ER by EMS due to suprapubic catheter was pulled out.Reportedly patient was uncomfortable and had a urinary retention and no record of how long was the suprapubic cath was out.An attempt to insert a new suprapubic cath per ER MD was unsuccessful. Seen and examined patient in the ED awake,alert and coherent with occasional forgetfulness as per family who was at bedside it is his baseline.Patient was able to voice desire to void as per primary nurse and patient voided . Patient denies fever,chill,abdominal pain ,chest pain,palpitation and shortness of breath. Latest vital signs heart rate 90 blood pressure 131/90 saturation 100% room air. Labs: Hemoglobin 8.3, hematocrit 25.9 platelet count 49. BUN 40 creatinine 1.7 GFR 42 total calcium 8.3. Urinalysis consistent with urinary tract infection. We will admit patient for further medical management. REVIEW OF SYSTEMS CONSTITUTIONAL: Denies fevers, chills, or night sweats. No unintentional weight loss reported. NEUROLOGICAL: Denies headache, amaurosis fugax, motor weakness, sensory deficit, vertigo/spinning sensation, gait abnormalities, or tremors. ENT: No hearing loss, otalgia, otorrhea, rhinitis, rhinorrhea, hoarseness, or so re throat. CARDIOVASCULAR: Denies any exertional angina, dyspnea on exertion, orthopnea, paroxysmal nocturnal dyspnea, palpitations, life-threatening arrhythmias, claudication. PULMONARY: Denies any shortness of breath, cough, phlegm/sputum, hemoptysis, pleuritic chest pain. SLEEP: Denies morning headaches, daytime somnolence or napping. Denies difficulty falling asleep, staying asleep, waking from sleep. Denies knowledge of snoring. GASTROINTESTINAL: Denies any type of dysphagia to either liquids or solids. Denies nausea, vomiting, pyrosis, early satiety, abdominal pain, diarrhea, constipation, or changes in stool consistency or caliber. Denies coffee-ground emesis, hematemesis, hematochezia, or melanotic stools. GENITOURINARY: Denies frequency, urgency, nocturia, hematuria or incontinence (Storage/Irritative symptoms.) Low urinary stream, straining to void, urinary intermittency or hesitancy, splitting of the voiding stream, terminal dribbling. ENDOCRINOLOGIC: Denies polyuria, polydipsia, polyphagia or heat/cold intolerances. HEMATOLOGIC: Denies thrombophilia/previous clots, or coagulopathy/bleeding disorders. ONCOLOGIC: Denies personal history of malignancy. DERMATOLOGIC: Denies rashes or pruritus. PSYCHIATRIC: Denies any suicidal or homicidal ideation. Denies hallucinations. PAST MEDICAL HISTORY: [ Hepato cellular carcinoma status post chemoembolization in March 12, 2023 on chemotherapy, hypertension, diabetes, CVA, gout, prostate cancer, coronary artery disease, CHF, artificial urinary sphincter ] PAST SURGICAL HISTORY: [ History of PEG tube placement, suprapubic catheter placement, artificial urinary sphincter, chemoembolization, ] PAST SOCIAL HISTORY: [ Patient came from [facility]. Patient denies alcohol tobacco and recreational drug use ] FAMILY HISTORY: [ Diabetes, cancer and Alzheimer's disease ] Coded Allergies: iodine (Verified Allergy, Severe, ANAPHYLAXIS, 12/02/19) clindamycin (Unverified Allergy, Intermediate, 12/02/23) ceftriaxone (Unverified Allergy, Mild, 12/04/19) doxycycline (Unverified Allergy, Mild, 12/04/19) vancomycin (Unverified Allergy, Unknown, 12/03/19) Uncoded Allergies: Clindamyci (Allergy, Intermediate, SWELLING, 12/02/19) PHYSICAL EXAM GENERAL APPEARANCE: The patient is awake, alert, and oriented, in no acute cardiopulmonary distress. NEUROLOGICAL: Cranial nerves II-XII grossly intact. Motor is 5/5 in bilateral upper and lower extremities proximal to distal. No sensory deficits. HEENT: Face is symmetric. Pupils are equal and reactive. Extraocular movements are intact. NECK: Supple. No JVD. No thyromegaly. No submental, submandibular, pre- /postauricular, occipital or supraclavicular lymphadenopathy. CHEST: Normal chest expansion. No Telemetry. LUNGS: Absence of any rales, rhonchi or any wheezing. CARDIOVASCULAR: Regular. S1 and S2 normal. No appreciable rubs, murmurs or gallops. ABDOMEN: soft, non-tender, non-distended, normal bowel sounds, no guarding or rebound. Obese abdomen with multiple healed scars in the midabdomen area. Horizontal incision with multiple shubham in the suprapubic area with small amount of purulent drainage from the stoma noted. There was an area which appeared to be dehiscing and some of the shubham came loose. : Deferred. No Villalpando. EXTREMITIES: 2+ edema to bilateral lower extremities SKIN: No skin breakdown. Vital Sign (Last 24 Hours) 01/05/24 01:07 Pulse 90 Resp 16 B/P (MAP) 131/90 Pulse Ox 100 O2 Delivery Room Air O2 Flow Rate 0 LABS: Laboratory: Test 01/05/24 03:09 Range/Units White Blood Count 4.9 4.8-10.8 K/uL Red Blood Count 2.36 L 4.50-6.20 MIL/uL Hemoglobin 8.3 L 14.0-18.0 g/dL Hematocrit 25.9 L 42-54 % Mean Corpuscular Volume 109.7 H 79-99 fL Mean Corpuscular Hemoglobin 35.2 H 27.0-33.0 pg Mean Corpuscular Hemoglobin Concent 32.0 32.0-36.0 g/dL Red Cell Distribution Width 20.5 H 11.0-15.5 % Platelet Count 49 L 130-400 K/uL Mean Platelet Volume 13.1 H 7.5-10.5 fL Immature Granulocyte % (Auto) 0.6 0-1 % Neutrophils (%) (Auto) 66.4 40.0-77.0 % Lymphocytes (%) (Auto) 16.8 L 21.0-51.0 % Monocytes (%) (Auto) 7.9 3.0-13.0 % Eosinophils (%) (Auto) 7.9 0.0-8.0 % Basophils (%) (Auto) 0.4 0.0-5.0 % Neutrophils # (Auto) 3.3 1.8-7.7 K/uL Lymphocytes # (Auto) 0.8 L 1.0-4.8 K/uL Monocytes # (Auto) 0.4 0.1-1.0 K/uL Eosinophils # (Auto) 0.39 0.00-0.70 K/uL Basophils # (Auto) 0.02 0.00-0.20 K/uL Absolute Immature Granulocyte (auto 0.03 0-1 K/uL Nucleated Red Blood Cells 0.0 0.0-0.19 % Platelet Morphology Comment PLT CLUMPS PRESENT Red Blood Cell Morphology ANISO 1+ Urine Color DARK-BROWN YELLOW Urine Appearance TURBID CLEAR Urine pH 6.0 5.0-8.0 Urine Specific Guadalupe 1.009 1.001-1.031 Urine Protein 70 H NEGATIVE mg/dL Urine Glucose (UA) NEGATIVE NEGATIVE mg/dL Urine Ketones NEGATIVE NEGATIVE mg/dL Urine Occult Blood LARGE H NEGATIVE Urine Nitrate NEGATIVE NEGATIVE Urine Bilirubin NEGATIVE NEGATIVE mg/dL Urine Urobilinogen 0.2 0.2-1.0 mg/dL Urine Leukocyte Esterase 250 H NEGATIVE Jorgito/uL Urine RBC TNTC H 0-1 /HPF Urine WBC 2-5 H 0-1 /HPF Urine Bacteria FEW None Seen /HPF Sodium Level 140 136-145 mmol/L Potassium Level 4.6 3.5-5.1 mmol/L Chloride Level 102 101-111 mmol/L Carbon Dioxide Level 32 21-32 mmol/L Blood Urea Nitrogen 40 H 7-18 mg/dL Creatinine 1.7 H 0.5-1.3 mg/dL Glomerular Filtration Rate Calc 42 >90 mL/min Random Glucose 95 70-105 mg/dL Total Calcium 8.3 L 8.5-10.1 mg/dL Current Medications Medications (Trade) Dose Ordered Sig/Luis Armando Route PRN Reason Start Time Stop Time Status Last Admin Dose Admin Acetaminophen (TYLenol 325MG TAB) 650 mg Q4H PRN PO MILD PAIN (1-3) 01/05/24 04:00 02/04/24 03:59 Acetaminophen (TYLenol 325MG TAB) 650 mg Q6H PRN PO TEMPERATURE GREATER THAN 101.5 01/05/24 04:00 02/04/24 03:59 Ceftriaxone Sodium 1 gm/ Sodium Chloride 50 ml @ 100 mls/hr BID IV 01/05/24 09:00 01/05/24 04:00 DC Famotidine (Pepcid 20mg Vial) 20 mg BID IV 01/05/24 09:00 02/04/24 08:59 UNV Ondansetron HCl (zoFRAN 4MG INJ) 4 mg Q6H PRN IV NAUSEA/VOMITING 01/05/24 04:00 02/04/24 03:59 DIAGNOSTICS / RADIOLOGY: [ ] ASSESSMENT: Suprapubic dislodgement POA Acute on chronic urinary retention POA Prostate cancer POA Acute urinary tract infection POA Acute anemia POA Acute Thrombocytopenia POA Stage 3 renal disease POA Atrial fibrillation POA CHF POA Diabetes POA CVA POA Altered mental status POA PLAN: We will admit patient in medical surgical floor We will start on heart healthy diet We will start on Levaquin 750 mg IV daily for empiric coverage We will start on Famotidine 20 mg p.o. bid for GI prophylaxis We will replace electrolytes as needed per protocol We will start on insulin sliding scale AC & HS with hypoglycemia protocol We will add prn medication for fever,pain,nausea and vomiting We will reconcile home meds once medlist available We will seek Urology consultation We will request labs in am Further orders to follow depending on above results Case discussed with attending physician and came up with above treatment and plan of care. ADVANCED CARE PLANNING 1. Which of the following were discussed? Hospice Care - No Therapeutic options - Yes Advance Directives - No Other discussions - 2. Discussed with who? Patient 3. Voluntary nature of this service was explained to the patient? Yes 4. Amount of time spent - __19 5. Reviewed by Physician? (if this service was performed by NPP) Yes Patient seen and examined by me. Agree with note by OUTSOLE MOLDER SEE ADDITIONAL ORDERS PER CHART DISCUSSED WITH NURSING STAFF LILO GUTIÉRREZ Jan 05, 2024 06:02
[2024-01-05 07:03] LABS: BASOPHILS # (AUTO) 0.03 K/uL (0.00-0.20); BASOPHILS % (AUTO) 0.7 % (0.0-5.0); EOSINOPHILS # (AUTO) 0.39 K/uL (0.00-0.70); EOSINOPHILS % (AUTO) 8.6 % (0.0-8.0); HEMATOCRIT 28.5 % (42-54); IMMATURE GRANULOCYTE ABSOLUTE 0.02 K/uL (0-1); LYMPHOCYTES # (AUTO) 0.7 K/uL (1.0-4.8); LYMPHOCYTES % (AUTO) 15.9 % (21.0-51.0); MEAN CORPUSCULAR HEMOGLOBIN 33.8 pg (27.0-33.0); MEAN CORPUSCULAR HGB CONC 31.6 g/dL (32.0-36.0); MEAN CORPUSCULAR VOLUME 107.1 fL (79-99); MONOCYTES # (AUTO) 0.4 K/uL (0.1-1.0); MONOCYTES % (AUTO) 8.1 % (3.0-13.0); NEUTROPHILS % (AUTO) 66.3 % (40.0-77.0); PLATELET COUNT (AUTO) 63 K/uL (130-400); RED BLOOD CELL COUNT(AUTO) 2.66 MIL/uL (4.50-6.20); RED CELL DISTRIBUTION WIDTH 20.4 % (11.0-15.5); WHITE BLOOD COUNT (AUTO) 4.5 K/uL (4.8-10.8)
[2024-01-05 07:26] LABS: ALBUMIN 1.7 g/dL (3.5-5.0); CREATININE 1.7 mg/dL (0.5-1.3); MAGNESIUM 1.9 mg/dL (1.80-2.40); POTASSIUM 4.5 mmol/L (3.5-5.1); TOTAL PROTEIN, SERUM 6.9 g/dL (6.0-8.3)
[2024-01-05] MEDS ORDERED: cefTRIAXone 1G VIAL 1 GM in 0.9%NACL 50ML 50 ML IV SCH (09:00)
[2024-01-05] MEDS: FAMOTIDINE 20MG VIAL IV SCH (09:05)
--- NOTE | 2024-01-05 09:49 | NUR ---
CALLED IN CONSULT TO DR. WINTER OFFICE. STATED THEY WOULD INFORM
[2024-01-05] MEDS: metoPROLOL tartRATE 25 MG TAB PEG SCH (10:47)
[2024-01-05] MEDS: dilTIAZem 60MG TAB PEG SCH (10:48)
--- NOTE | 2024-01-05 11:17 | NUR ---
DCP: RETURN TO [facility] met with pt and his [address] [phone]. Pt is currently at [facility] for PT and wants to return at dc. signed consent for referral t be made. Consent on chart. Sw spoke to Bere at [facility] and she is checking if pt can return to [facility] at dc. Will update Prior to SNF, pt was living at home with his . Sister/MPOA Latoya Eli [phone], is pt's provider 13hrs a wk thru the [facility]. At home, pt has a cane, walker, w/c and O2. No HH or HD services. PCP is Stuart Davalos for medical care and meds thru [facility]. Addendum: 01/05/24 at 1126 by MOHIT DOMINGUEZ Amended: Links added.
[2024-01-05] MEDS: levoFLOXacin 750 MG/D5W 150ML BAG IV SCH (11:25)
--- NOTE | 2024-01-05 11:31 | NUR ---
RECIEVED CALL FROM RYANNE AT DR. SKY'S OFFICE. STATED TO HAVE SUPRAPUBIC CATHETER PUT IN BY IR STAT. ALSO STATED IF RADIOLOGIST HAS QUESTIONS TO CALL HIM AT THE OFFICE. WILL INFORM IR.
--- NOTE | 2024-01-05 11:45 | NUR ---
RE: SUPRAPUBIC CATHETER PLACEMENT BY IR RECIEVED A CALL FROM ED REGARDING PLACEMENT OF SUPRAPUBIC CATHETER. DR Steff GUDINO NOTIFIED AND STATED PROCEDURE NOT DONE IN RADIOLOGY. PROCEDURE OUTCOME REPORTED TO Mega MARTINEZ RN AND DR Tyler CORNELL'S CELL PHONE NUMBER GIVEN TO BE NOTIFIED BY ED. DR Cyril SKY'S OFFICE CALLED ASWELL AND DR Tyler CORNELL'S CELL PHONE NUMBER GIVEN TO SPEAK WITH DR Cyril SKY.
--- NOTE | 2024-01-05 14:56 | PN ---
[facility] PROGRESS NOTE Date of Service: Jan 05, 2024 Time of Service: 11:00 AM SUBJECTIVE: The patient is a 73-year-old chronically ill looking male a resident of [facility] with past medical history of hepatocellular carcinoma status post chemoembolization on chemotherapy, hypertension, hyperlipidemia, diabetes, CVA, gout, prostate cancer with chronic suprapubic catheter use, artificial urinary sphincter, coronary artery disease, atrial fibrillation and CHF who was brought to ER by EMS due to suprapubic catheter was pulled out approximately around 11:00 PM yesterday .Reportedly patient was uncomfortable and had a urinary retention. An attempt to insert a new suprapubic cath per ER MD was unsuccessful. The patient had urge to void urine at midnight and had a successful episode of passing urine on his own at bedside. He had multiple hospitalizations last month at this facility for Acute metabolic encephalopathy and Septic shock . The patient denies fever, chills ,abdominal pain ,chest pain, palpitation and shortness of breath. The patient was forgetful on presentation however, per family this is his baseline. On presentations, his vitals were stable. Labs showed Hemoglobin 8.3, hematocrit 25.9 platelet count 49, BUN 40, creatinine 1.7, GFR 42, total calcium 8.3. Urinalysis appeared dark brown, positive for large occult blood, leucocyte esterase 250, RBCs too numerous to count. The patient will be admitted on the medical surgical floor for the management of Complicated UTI. 01/05/24- The patient was examined today in ED3. He is alert, oriented to time, place and person at the moment. He denies any c/o chest pain, dizziness, burning micturition or abdominal discomfort. Urine culture was sent, he will be started on soft diet. Urologist consult was made to evaluate if the patient needed reinsertion of suprapubic catheter, recommendations are pending. The patient is pending bed on Medical Surgical floor. Further assessment and plan as discussed below. REVIEW OF SYSTEMS CONSTITUTIONAL: Denies fevers, chills, or night sweats. No unintentional weight loss reported. NEUROLOGICAL: Denies headache, amaurosis fugax, motor weakness, sensory deficit, vertigo/spinning sensation, gait abnormalities, or tremors. ENT: No hearing loss, otalgia, otorrhea, rhinitis, rhinorrhea, hoarseness, or sore throat. CARDIOVASCULAR: Denies any exertional angina, dyspnea on exertion, orthopnea, paroxysmal nocturnal dyspnea, palpitations, life-threatening arrhythmias, claudication. PULMONARY: Denies any shortness of breath, cough, phlegm/sputum, hemoptysis, pleuritic chest pain. SLEEP: Denies morning headaches, daytime somnolence or napping. Denies difficulty falling asleep, staying asleep, waking from sleep. Denies knowledge of snoring. GASTROINTESTINAL: Denies any type of dysphagia to either liquids or solids. Denies nausea, vomiting, pyrosis, early satiety, abdominal pain, diarrhea, constipation, or changes in stool consistency or caliber. Denies coffee-ground emesis, hematemesis, hematochezia, or melanotic stools. GENITOURINARY: Denies frequency, urgency, nocturia, hematuria or incontinence (Storage/Irritative symptoms.) Low urinary stream, straining to void, urinary intermittency or hesitancy, splitting of the voiding stream, terminal dribbling. ENDOCRINOLOGIC: Denies polyuria, polydipsia, polyphagia or heat/cold intolerances. HEMATOLOGIC: Denies thrombophilia/previous clots, or coagulopathy/bleeding disorders. ONCOLOGIC: Denies personal history of malignancy. DERMATOLOGIC: Denies rashes or pruritus. PSYCHIATRIC: Denies any suicidal or homicidal ideation. Denies hallucinations. PHYSICAL EXAM GENERAL APPEARANCE: The patient is awake, alert, and oriented, in no acute cardiopulmonary distress. NEUROLOGICAL: Cranial nerves II-XII grossly intact. Motor is 5/5 in bilateral upper and lower extremities proximal to distal. No sensory deficits. HEENT: Face is symmetric. Pupils are equal and reactive. Extraocular movements are intact. NECK: Supple. No JVD. No thyromegaly. No submental, submandibular, pre- /postauricular, occipital or supraclavicular lymphadenopathy. CHEST: Normal chest expansion. No Telemetry. LUNGS: Absence of any rales, rhonchi or any wheezing. CARDIOVASCULAR: Regular. S1 and S2 normal. No appreciable rubs, murmurs or gallops. ABDOMEN: soft, non-tender, non-distended, normal bowel sounds, no guarding or rebound. Obese abdomen with multiple healed scars in the midabdomen area. Horizontal incision with multiple shubham in the suprapubic area with small amount of purulent drainage from the stoma noted. There was an area which appeared to be dehiscing and some of the shubham came loose. : Deferred. No Villalpando. EXTREMITIES: 2+ edema to bilateral lower extremities SKIN: No skin breakdown. Vital Signs (last 8hr) Date Time Temp Pulse Resp B/P (MAP) Pulse Ox O2 Delivery O2 Flow Rate FiO2 01/05/24 12:37 98.1 90 18 91/51 97 Room Air* 0 21 01/05/24 09:15 97.9 96 18 106/60 97 Room Air* 0 01/05/24 08:00 97.9 96 18 104/66 100 Nasal Cannula* 2 28 01/05/24 06:04 98.6 98 18 115/64 100 Nasal Cannula* 2 28 LABS: Laboratory: Test 01/05/24 10:26 01/05/24 06:21 01/05/24 03:09 Range/Units Lactic Acid Level 2.1 0.8-2.5 mmol/L White Blood Count 4.5 L 4.8-10.8 K/uL Red Blood Count 2.66 L 4.50-6.20 MIL/uL Hemoglobin 9.0 L 14.0-18.0 g/dL Hematocrit 28.5 L 42-54 % Mean Corpuscular Volume 107.1 H 79-99 fL Mean Corpuscular Hemoglobin 33.8 H 27.0-33.0 pg Mean Corpuscular Hemoglobin Concent 31.6 L 32.0-36.0 g/dL Red Cell Distribution Width 20.4 H 11.0-15.5 % Platelet Count 63 #L 130-400 K/uL Mean Platelet Volume 12.0 H 7.5-10.5 fL Immature Granulocyte % (Auto) 0.4 0-1 % Neutrophils (%) (Auto) 66.3 40.0-77.0 % Lymphocytes (%) (Auto) 15.9 L 21.0-51.0 % Monocytes (%) (Auto) 8.1 3.0-13.0 % Eosinophils (%) (Auto) 8.6 H 0.0-8.0 % Basophils (%) (Auto) 0.7 0.0-5.0 % Neutrophils # (Auto) 3.0 1.8-7.7 K/uL Lymphocytes # (Auto) 0.7 L 1.0-4.8 K/uL Monocytes # (Auto) 0.4 0.1-1.0 K/uL Eosinophils # (Auto) 0.39 0.00-0.70 K/uL Basophils # (Auto) 0.03 0.00-0.20 K/uL Absolute Immature Granulocyte (auto 0.02 0-1 K/uL Nucleated Red Blood Cells 0.0 0.0-0.19 % Sodium Level 140 136-145 mmol/L Potassium Level 4.5 3.5-5.1 mmol/L Chloride Level 103 101-111 mmol/L Carbon Dioxide Level 32 21-32 mmol/L Blood Urea Nitrogen 38 H 7-18 mg/dL Creatinine 1.7 H 0.5-1.3 mg/dL Glomerular Filtration Rate Calc 42 >90 mL/min Random Glucose 83 70-105 mg/dL Total Calcium 8.4 L 8.5-10.1 mg/dL Magnesium Level 1.90 1.80-2.40 mg/dL Total Bilirubin 3.0 H 0.2-1.0 mg/dL Aspartate Amino Transf (AST/SGOT) 53 H 10-37 U/L Alanine Aminotransferase (ALT/SGPT) 19 12-78 U/L Alkaline Phosphatase 258 H 50-136 U/L Total Protein 6.9 6.0-8.3 g/dL Albumin 1.7 L 3.5-5.0 g/dL Procalcitonin 0.21 0.05-0.5 ng/mL Platelet Morphology Comment PLT CLUMPS PRESENT Red Blood Cell Morphology ANISO 1+ Urine Color DARK-BROWN YELLOW Urine Appearance TURBID CLEAR Urine pH 6.0 5.0-8.0 Urine Specific [place] 1.009 1.001-1.031 Urine Protein 70 H NEGATIVE mg/dL Urine Glucose (UA) NEGATIVE NEGATIVE mg/dL Urine Ketones NEGATIVE NEGATIVE mg/dL Urine Occult Blood LARGE H NEGATIVE Urine Nitrate NEGATIVE NEGATIVE Urine Bilirubin NEGATIVE NEGATIVE mg/dL Urine Urobilinogen 0.2 0.2-1.0 mg/dL Urine Leukocyte Esterase 250 H NEGATIVE Jorgito/uL Urine RBC TNTC H 0-1 /HPF Urine WBC 2-5 H 0-1 /HPF Urine Bacteria FEW None Seen /HPF Current Medications Medications (Trade) Dose Ordered Sig/Luis Armando Route PRN Reason Start Time Stop Time Status Last Admin Dose Admin Acetaminophen (TYLenol 325MG TAB) 650 mg Q4H PRN PO MILD PAIN (1-3) 01/05/24 04:00 02/04/24 03:59 Acetaminophen (TYLenol 325MG TAB) 650 mg Q6H PRN PO TEMPERATURE GREATER THAN 101.5 01/05/24 04:00 02/04/24 03:59 Ceftriaxone Sodium 1 gm/ Sodium Chloride 50 ml @ 100 mls/hr BID IV 01/05/24 09:00 01/05/24 04:00 DC Diltiazem HCl (CARDIzem 60MG TAB) 30 mg DAILY PEG 01/05/24 10:30 02/04/24 10:29 01/05/24 10:48 30 MG Famotidine (Pepcid 20mg Vial) 20 mg DAILY IV 01/05/24 09:00 02/04/24 08:59 01/05/24 09:05 20 MG Levofloxacin/ Dextrose (LEvaquIN 750 MG/ D5W 150 ML) 750 mg Q48H IV 01/05/24 09:00 01/15/24 08:59 01/05/24 11:25 750 MG Metoprolol Tartrate (loprESSOR) 25 mg BID PEG 01/05/24 10:30 02/04/24 10:29 01/05/24 10:47 25 MG Ondansetron HCl (zoFRAN 4MG INJ) 4 mg Q6H PRN IV NAUSEA/VOMITING 01/05/24 04:00 02/04/24 03:59 DIAGNOSTICS / RADIOLOGY: No radiologic investigations were performed as of now yet. ASSESSMENT: Suprapubic dislodgement of the catheter POA Acute on chronic urinary retention POA Prostate cancer POA Acute urinary tract infection POA Acute anemia POA Acute Thrombocytopenia POA Stage 3 renal disease POA Atrial fibrillation POA CHF POA Type 2 Diabetes POA CVA POA Altered mental status POA Allergy to Clindamycin, Ceftriaxone, doxycycline, Vancomycin PLAN: We will admit patient in medical surgical floor. Suprapubic dislodgement of the catheter POA Acute on chronic urinary retention POA * The patient is able to void on his own for now, monitor urine output. * Urologist consult was made to evaluate if the patient is needing the olya nsertion of the suprapubic catheter. Follow recommendations when available. Acute urinary tract infection POA * Continue with Levofloxacin 750 mg IV Q48. * The patient is Allergic to Clindamycin, Ceftriaxone, doxycycline, Vancomycin Atrial fibrillation POA * Hold on Eliquis 2.5 MG given hematuria. * Continue with Diltiazem 60 MG PO daily. * Replace electrolytes as needed per protocol * Continue on heart healthy diet * Continue with Metoprolol 25 MG, Hold Furosemide 25 MG today since the BP is on softer side. * We will start on Famotidine 20 mg p.o. bid for GI prophylaxis * Start on insulin sliding scale AC & HS with hypoglycemia protocol * PRN medication for fever,pain,nausea and vomiting AM Labs: CBC, CMP ATTESTATION BY PHYSICIAN I have seen and examined the patient. I reviewed the documentation, medical decision making, and treatment plan as noted by the resident provider above. I agree with the findings and plan of care. Te Lambert MD, MANALI MD Jan 05, 2024 14:56
[2024-01-05 16:15] VITALS: BP 136/69; PULSE 54; RESP 20; TEMP 98.7
[2024-01-05] MEDS ORDERED: LACTULOSE 20 GM/30 ML UDCUP PO PRN (17:00)
[2024-01-05 19:10] VITALS: O2SAT 95
[2024-01-05 20:00] VITALS: BP 115/71; PULSE 115; RESP 20; TEMP 97.7
[2024-01-05] MEDS ORDERED: metoPROLOL tartRATE 25 MG TAB PEG SCH (21:00)
[2024-01-05] MEDS: ALPRAZolam 0.5 MG TABLET PO ONE (23:29)
[2024-01-06] VITALS (11 sets, daily range): BP systolic 94–111; BP diastolic 57–77; PULSE 77–126; RESP 16–20; TEMP 97.5–99; O2SAT 95–100
[2024-01-06 04:27] LABS: BASOPHILS # (AUTO) 0.03 K/uL (0.00-0.20); BASOPHILS % (AUTO) 0.6 % (0.0-5.0); EOSINOPHILS # (AUTO) 0.33 K/uL (0.00-0.70); HEMATOCRIT 26.7 % (42-54); IMMATURE GRANULOCYTE ABSOLUTE 0.03 K/uL (0-1); LYMPHOCYTES # (AUTO) 0.6 K/uL (1.0-4.8); LYMPHOCYTES % (AUTO) 11.8 % (21.0-51.0); MEAN CORPUSCULAR HEMOGLOBIN 35.3 pg (27.0-33.0); MEAN CORPUSCULAR VOLUME 107.2 fL (79-99); MONOCYTES # (AUTO) 0.4 K/uL (0.1-1.0); MONOCYTES % (AUTO) 7.4 % (3.0-13.0); NEUTROPHILS # (AUTO) 3.4 K/uL (1.8-7.7); NEUTROPHILS % (AUTO) 72.6 % (40.0-77.0); PLATELET COUNT (AUTO) 56 K/uL (130-400); RED BLOOD CELL COUNT(AUTO) 2.49 MIL/uL (4.50-6.20); RED CELL DISTRIBUTION WIDTH 19.9 % (11.0-15.5); WHITE BLOOD COUNT (AUTO) 4.7 K/uL (4.8-10.8)
[2024-01-06 04:52] LABS: ALBUMIN 1.7 g/dL (3.5-5.0); BILIRUBIN,TOTAL 2.6 mg/dL (0.2-1.0); CREATININE 1.8 mg/dL (0.5-1.3); POTASSIUM 4.1 mmol/L (3.5-5.1); TOTAL PROTEIN, SERUM 6.5 g/dL (6.0-8.3)
[2024-01-06] MEDS ORDERED: dilTIAZem 60MG TAB PEG SCH (09:00)
[2024-01-06] MEDS: DiphenhydrAMINE HCL 50 MG/ML VIAL IV ONE (09:30)
[2024-01-06 09:57] LABS: INR 1.19 (0.85-1.15); PROTHROMBIN TIME 12.7 SEC (9.6-11.6)
--- NOTE | 2024-01-06 11:16 | NUR ---
SP CATHETER REPLACEMENT OR OFFAL SEPARATOR CALLED TO SET UP FOR SP CATHETER REPLACEMENT BY IR IN CREATIVE SERVICES COORDINATOR. PT NPO.
--- NOTE | 2024-01-06 12:09 | NUR ---
Nutrition consult per TF recs Reviewed labs, notes, and medications. Pt from [facility], with Alzheimer, NPO, elevated bun 40, elevated Cr 1.8, hypocalcemia 8.4, elevated bilirubin 2.6, elevated AST 41 per chart review. PEG tube in place, wt via bed scale, last BM 01/06/24, buttock ulcer and incision wound, well nourished, mild pitting per nursing. No wt change since last admin 12/21/23 per chart review. Recommendations -Provide Pivot 1.5 @ 55 ml/hr x 22 hrs + 200 Q4H Provides: 1815 kcals, 113 gm pro, 2118 ml per day -If bolus provide: 5 cans of Pivot 1.5 (times: 0900,1400, 1900, 0000,0400) 30 ml before and after each feed -Monitor BM -If no BM >3 days consider stool softener -Monitor electrolytes -Replenish electrolytes per protocol -Monitor wts -Reweigh as able -Order Vit D, vit b-12 labs to rule out deficiencies -Provide b-complex + vit. c supplement QD to aid in wound healing -Recommend Pt to follow up with PCP -Monitor TF tolerance + need for TF adjustment -Monitor goals of care RD to follow + available for consult per protocol Addendum: 01/06/24 at [address] Amended: Links added.
--- NOTE | 2024-01-06 14:43 | PN ---
[facility] PROGRESS NOTE Date of Service: Jan 06, 2024 Time of Service: 12:00 SUBJECTIVE: The patient is a 73-year-old chronically ill looking male a resident of [facility] with past medical history of hepatocellular carcinoma status post chemoembolization on chemotherapy, hypertension, hyperlipidemia, diabetes, CVA, gout, prostate cancer with chronic suprapubic catheter use, artificial urinary sphincter, coronary artery disease, atrial fibrillation and CHF who was brought to ER by EMS due to suprapubic catheter was pulled out approximately around 11:00 PM yesterday .Reportedly patient was uncomfortable and had a urinary retention. An attempt to insert a new suprapubic cath per ER MD was unsuccessful. The patient had urge to void urine at midnight and had a successful episode of passing urine on his own at bedside. He had multiple hospitalizations last month at this facility for Acute metabolic encephalopathy and Septic shock . The patient denies fever, chills ,abdominal pain ,chest pain, palpitation and shortness of breath. The patient was forgetful on presentation however, per family this is his baseline. On presentations, his vitals were stable. Labs showed Hemoglobin 8.3, hematocrit 25.9 platelet count 49, BUN 40, creatinine 1.7, GFR 42, total calcium 8.3. Urinalysis appeared dark brown, positive for large occult blood, leucocyte esterase 250, RBCs too numerous to count. The patient will be admitted on the medical surgical floor for the management of Complicated UTI. 01/05/24: The patient was examined today in ED3. He is alert, oriented to time, place and person at the moment. He denies any c/o chest pain, dizziness, burning micturition or abdominal discomfort. Urine culture was sent, he will be started on soft diet. Urologist consult was made to evaluate if the patient needed reinsertion of suprapubic catheter, recommendations are pending. The patient is pending bed on Medical Surgical floor. Further assessment and plan as discussed below. 01/06/24: The patient was examined today at bedside. He is drowsy, sleepy, and slightly confused, on 1 L of nasal cannula. His is at bedside, he denies any complaints of chest pain, dizziness, or any abdominal discomfort. Urine culture showed CFU [id number], gram positive cocci in clusters. Sensitivities pending. He is still pending suprapubic catheter placement by IR most likely today. The patient has been voiding on his own until now. The decision of the patient needing suprapubic catheter placement will be made by the urologist. Follow up with the recommendations. He has PEG tube in placed due to not able to have enough appetite to consume food through mouth. Director Speech Language consult was made, recommendations are mentioned under notes. He also has staplers on abdomen from previous surgery and wound on buttocks, wound consult was made yesterday, follow up with the recommendations when available. Labs: Hemoglobin 8.8, platelets 56, BUN 40, creatinine 1.8, GFR 39, total bilirubin 2.6, albumin 1.7, AST 41, alkaline phosphatase 230, PT 12.7 (9.6- 11.6), INR 1.19 (0.85-1.15) For the assessment and plan discussed below. REVIEW OF SYSTEMS CONSTITUTIONAL: Denies fevers, chills, or night sweats. No unintentional weight loss reported. NEUROLOGICAL: Denies headache, amaurosis fugax, motor weakness, sensory deficit, vertigo/spinning sensation, gait abnormalities, or tremors. ENT: No hearing loss, otalgia, otorrhea, rhinitis, rhinorrhea, hoarseness, or sore throat. CARDIOVASCULAR: Denies any exertional angina, dyspnea on exertion, orthopnea, paroxysmal nocturnal dyspnea, palpitations, life-threatening arrhythmias, claudication. PULMONARY: Denies any shortness of breath, cough, phlegm/sputum, hemoptysis, pleuritic chest pain. SLEEP: Denies morning headaches, daytime somnolence or napping. Denies difficulty falling asleep, staying asleep, waking from sleep. Denies knowledge of snoring. GASTROINTESTINAL: Denies any type of dysphagia to either liquids or solids. Denies nausea, vomiting, pyrosis, early satiety, abdominal pain, diarrhea, constipation, or changes in stool consistency or caliber. Denies coffee-ground emesis, hematemesis, hematochezia, or melanotic stools. GENITOURINARY: Denies frequency, urgency, nocturia, hematuria or incontinence (Storage/Irritative symptoms.) Low urinary stream, straining to void, urinary intermittency or hesitancy, splitting of the voiding stream, terminal dribbling. ENDOCRINOLOGIC: Denies polyuria, polydipsia, polyphagia or heat/cold intolerances. HEMATOLOGIC: Denies thrombophilia/previous clots, or coagulopathy/bleeding disorders. ONCOLOGIC: Denies personal history of malignancy. DERMATOLOGIC: Denies rashes or pruritus. PSYCHIATRIC: Denies any suicidal or homicidal ideation. Denies hallucinations. PHYSICAL EXAM GENERAL APPEARANCE: The patient is awake, alert, and oriented, in no acute cardiopulmonary distress. NEUROLOGICAL: Cranial nerves II-XII grossly intact. Motor is 5/5 in bilateral upper and lower extremities proximal to distal. No sensory deficits. HEENT: Face is symmetric. Pupils are equal and reactive. Extraocular movements are intact. NECK: Supple. No JVD. No thyromegaly. No submental, submandibular, pre- /postauricular, occipital or supraclavicular lymphadenopathy. CHEST: Normal chest expansion. No Telemetry. LUNGS: Absence of any rales, rhonchi or any wheezing. CARDIOVASCULAR: Regular. S1 and S2 normal. No appreciable rubs, murmurs or gallops. ABDOMEN: soft, non-tender, non-distended, normal bowel sounds, no guarding or rebound. Obese abdomen with multiple healed scars in the midabdomen area. Horizontal incision with multiple shubham in the suprapubic area with small amount of purulent drainage from the stoma noted. There was an area which appeared to be dehiscing and some of the shubahm came loose. : Deferred. No Villalpando. EXTREMITIES: 2+ edema to bilateral lower extremities SKIN: No skin breakdown. Vital Signs (last 8hr) Date Time Temp Pulse Resp B/P (MAP) Pulse Ox O2 Delivery O2 Flow Rate FiO2 01/06/24 08:27 96/58 01/06/24 08:00 97.5 100 16 95/58 100 Nasal Cannula 1.0 22 01/06/24 08:00 100 Nasal Cannula* 1 24 LABS: Laboratory: Test 01/06/24 09:27 01/06/24 03:58 01/05/24 17:01 01/05/24 10:26 Range/Units Prothrombin Time 12.7 H 9.6-11.6 SEC Prothromb Time International Ratio 1.19 H 0.85-1.15 Vitamin B12 Level 1956 H 193-986 pg/mL White Blood Count 4.7 L 4.8-10.8 K/uL Red Blood Count 2.49 L 4.50-6.20 MIL/uL Hemoglobin 8.8 L 14.0-18.0 g/dL Hematocrit 26.7 L 42-54 % Mean Corpuscular Volume 107.2 H 79-99 fL Mean Corpuscular Hemoglobin 35.3 H 27.0-33.0 pg Mean Corpuscular Hemoglobin Concent 33.0 32.0-36.0 g/dL Red Cell Distribution Width 19.9 H 11.0-15.5 % Platelet Count 56 L 130-400 K/uL Mean Platelet Volume 11.8 H 7.5-10.5 fL Immature Granulocyte % (Auto) 0.6 0-1 % Neutrophils (%) (Auto) 72.6 40.0-77.0 % Lymphocytes (%) (Auto) 11.8 L 21.0-51.0 % Monocytes (%) (Auto) 7.4 3.0-13.0 % Eosinophils (%) (Auto) 7.0 0.0-8.0 % Basophils (%) (Auto) 0.6 0.0-5.0 % Neutrophils # (Auto) 3.4 1.8-7.7 K/uL Lymphocytes # (Auto) 0.6 L 1.0-4.8 K/uL Monocytes # (Auto) 0.4 0.1-1.0 K/uL Eosinophils # (Auto) 0.33 0.00-0.70 K/uL Basophils # (Auto) 0.03 0.00-0.20 K/uL Absolute Immature Granulocyte (auto 0.03 0-1 K/uL Nucleated Red Blood Cells 0.0 0.0-0.19 % Sodium Level 139 136-145 mmol/L Potassium Level 4.1 3.5-5.1 mmol/L Chloride Level 104 101-111 mmol/L Carbon Dioxide Level 28 21-32 mmol/L Blood Urea Nitrogen 40 H 7-18 mg/dL Creatinine 1.8 H 0.5-1.3 mg/dL Glomerular Filtration Rate Calc 39 >90 mL/min Random Glucose 79 70-105 mg/dL Total Calcium 8.4 L 8.5-10.1 mg/dL Total Bilirubin 2.6 H 0.2-1.0 mg/dL Aspartate Amino Transf (AST/SGOT) 41 H 10-37 U/L Alanine Aminotransferase (ALT/SGPT) 18 12-78 U/L Alkaline Phosphatase 230 H 50-136 U/L Total Protein 6.5 6.0-8.3 g/dL Albumin 1.7 L 3.5-5.0 g/dL Ammonia 15 11-32 umol/L Lactic Acid Level 2.1 0.8-2.5 mmol/L Test 01/05/24 06:21 01/05/24 03:09 Range/Units Magnesium Level 1.90 1.80-2.40 mg/dL Procalcitonin 0.21 0.05-0.5 ng/mL Platelet Morphology Comment PLT CLUMPS PRESENT Red Blood Cell Morphology ANISO 1+ Urine Color DARK-BROWN YELLOW Urine Appearance TURBID CLEAR Urine pH 6.0 5.0-8.0 Urine Specific [place] 1.009 1.001-1.031 Urine Protein 70 H NEGATIVE mg/dL Urine Glucose (UA) NEGATIVE NEGATIVE mg/dL Urine Ketones NEGATIVE NEGATIVE mg/dL Urine Occult Blood LARGE H NEGATIVE Urine Nitrate NEGATIVE NEGATIVE Urine Bilirubin NEGATIVE NEGATIVE mg/dL Urine Urobilinogen 0.2 0.2-1.0 mg/dL Urine Leukocyte Esterase 250 H NEGATIVE Jorgito/uL Urine RBC TNTC H 0-1 /HPF Urine WBC 2-5 H 0-1 /HPF Urine Bacteria FEW None Seen /HPF Current Medications Medications (Trade) Dose Ordered Sig/Luis Armando Route PRN Reason Start Time Stop Time Status Last Admin Dose Admin Acetaminophen (TYLenol 325MG TAB) 650 mg Q4H PRN PO MILD PAIN (1-3) 01/05/24 04:00 02/04/24 03:59 Acetaminophen (TYLenol 325MG TAB) 650 mg Q6H PRN PO TEMPERATURE GREATER THAN 101.5 01/05/24 04:00 02/04/24 03:59 Ceftriaxone Sodium 1 gm/ Sodium Chloride 50 ml @ 100 mls/hr BID IV 01/05/24 09:00 01/05/24 04:00 DC Diltiazem HCl (CARDIzem 60MG TAB) 30 mg DAILY PEG 01/05/24 10:30 02/04/24 10:29 01/05/24 10:48 30 MG Diltiazem HCl (CARDIzem 60MG TAB) 30 mg DAILY PEG 01/06/24 09:00 01/05/24 14:57 DC Famotidine (Pepcid 20mg Vial) 20 mg DAILY IV 01/05/24 09:00 02/04/24 08:59 01/06/24 08:22 20 MG Lactulose (Constulose 20gm/ 30ml Udcup) 20 gm BID PRN PO CONSTIPATION 01/05/24 17:00 02/04/24 16:59 Levofloxacin/ Dextrose (LEvaquIN 750 MG/ D5W 150 ML) 750 mg Q48H IV 01/05/24 09:00 01/15/24 08:59 01/05/24 11:25 750 MG Metoprolol Tartrate (loprESSOR) 25 mg BID PEG 01/05/24 10:30 02/04/24 10:29 01/06/24 11:39 25 MG Metoprolol Tartrate (loprESSOR) 25 mg BID PEG 01/05/24 21:00 01/05/24 14:58 DC Ondansetron HCl (zoFRAN 4MG INJ) 4 mg Q6H PRN IV NAUSEA/VOMITING 01/05/24 04:00 02/04/24 03:59 DIAGNOSTICS / RADIOLOGY: No radiologic investigations were performed during this hospitalization. ASSESSMENT: Suprapubic dislodgement of the catheter POA Acute on chronic urinary retention POA Prostate cancer POA Acute urinary tract infection POA Acute anemia POA Acute Thrombocytopenia POA Stage 3 renal disease POA Atrial fibrillation POA CHF POA Type 2 Diabetes POA CVA POA Altered mental status POA Pressure ulcers Allergy to Clindamycin, Ceftriaxone, doxycycline, Vancomycin PLAN: The patient remains admitted on medical surgical floor. Suprapubic dislodgement of the catheter POA Acute on chronic urinary retention POA * The patient is able to void on his own for now, monitor urine output. * The patient is going to IR for the placement of suprapubic catheter recommended by the urologist later today. Acute urinary tract infection POA * Continue with Levofloxacin 750 mg IV Q48. Urine culture showed CFU [id number], gram-positive cocci in the clusters, sensitivities pending. Follow up on the results are available. * The patient is Allergic to Clindamycin, Ceftriaxone, doxycycline, Vancomycin Atrial fibrillation POA * Hold on Eliquis 2.5 MG today given hematuria. * Continue with Diltiazem 60 MG PO daily. Pressure ulcers Wound care consult is pending, follow up when the recommendations are available. * Replace electrolytes as needed per protocol * Continue on heart healthy diet * Continue with Metoprolol 25 MG, Hold Furosemide 25 MG today since the BP is on softer side. Hold BP medication until the blood pressure is on the softer side. * Continue on famotidine 20 mg p.o. bid for GI prophylaxis * Start on insulin sliding scale AC & HS with hypoglycemia protocol * Keep the wound site dry and clear. * PRN medication for fever,pain,nausea and vomiting AM Labs: CBC, CMP ATTESTATION BY PHYSICIAN I have seen and examined the patient. I reviewed the documentation, medical decision making, and treatment plan as noted by the resident provider above. I agree with the findings and plan of care. Te Lambert MD, MANALI MD Jan 06, 2024 14:43
--- NOTE | 2024-01-06 16:00 | NUR ---
OFF UNIT TAKEN TO SENIOR FRONT END DEVELOPER FOR SP CATHETER INSERTION
[2024-01-06] MEDS ORDERED: HEParin-NS 1,000 UNIT/500 ML 500 ML IV ONE (16:13)
[2024-01-06] MEDS ORDERED: IOHEXOL-350 50ML VIAL IV ONE (16:13)
[2024-01-06] MEDS ORDERED: LIDOCAINE HCL 400MG/20ML VIAL ONE (16:14)
[2024-01-06] MEDS ORDERED: DiphenhydrAMINE HCL 50 MG/ML VIAL ONE (16:40)
[2024-01-06] MEDS ORDERED: Solu-medROL 125MG VIAL ONE (16:40)
--- NOTE | 2024-01-06 17:20 | NUR ---
RETURN TO UNIT RETURNED ON UNIT. SP CATHETER PLACEMENT UNSUCCESSFUL. INFORMED DR VALIENTE AND DR SKY. V/S TAKEN AND PT DROWSY
[2024-01-07] VITALS (7 sets, daily range): BP systolic 95–128; BP diastolic 51–68; PULSE 76–136; RESP 18–20; TEMP 97.5–98; O2SAT 96
--- NOTE | 2024-01-07 00:07 | OP ---
DATE OF PROCEDURE: 01/06/2024 INDICATIONS: History of displaced suprapubic catheter. DESCRIPTION OF PROCEDURE: Informed consent was obtained. Discussion of the risks, benefits and alternatives of the treatment. The area was prepped and draped in sterile fashion. Multiple unsuccessful attempts were made to inject contrast through the tract. Multiple unsuccessful attempts were made to advance the catheter and Glidewire through the existing tract. All the wires and catheters were removed and sterile dressings applied. No immediate complication. The patient tolerated the procedure well. IMPRESSION: Multiple unsuccessful attempts were made to recanalize the suprapubic tract. The patient tolerated the procedure well. TID: [id number] RECEIPT: [id number]
--- NOTE | 2024-01-07 00:15 | NUR ---
BEHAVIOR PATIENT GETTING AGITATED ATTEMPTING TO GET OUT OF BED STATING "I NEED TO GO TO WORK". PATIENT IS BEDREST AND DOES NOT AMBULATE AT THIS TIME. CHEMIC MANGLER PAGED ORDER RECEIVED FOR XANAX 0.5MG P.O. X1DOSE, WILL CONTINUE PLAN OF CARE.
[2024-01-07] MEDS: ALPRAZolam 0.5 MG TABLET PO ONE (00:21)
--- NOTE | 2024-01-07 06:25 | NUR ---
BEHAVIOR PATIENT BECAME AGITATED ONCE AGAIN PULLING OUT HIS PEG TUBE THIS TIME, PEG SITE COVERED WITH 4X4 AND TAPE. HOSPITALIST PAGED VALENTIN AGUDELO MADE AWARE OF SITUATION. WILL CONTINUE PLAN OF CARE. NO DISTRESS NOTED.
[2024-01-07 07:21] LABS: HEMATOCRIT 29.1 % (42-54); IMMATURE GRANULOCYTE ABSOLUTE 0.02 K/uL (0-1); LYMPHOCYTES # (AUTO) 0.4 K/uL (1.0-4.8); LYMPHOCYTES % (AUTO) 8.8 % (21.0-51.0); MEAN CORPUSCULAR HEMOGLOBIN 35.2 pg (27.0-33.0); MEAN CORPUSCULAR HGB CONC 32.3 g/dL (32.0-36.0); MONOCYTES # (AUTO) 0.1 K/uL (0.1-1.0); MONOCYTES % (AUTO) 2.3 % (3.0-13.0); NEUTROPHILS # (AUTO) 3.9 K/uL (1.8-7.7); NEUTROPHILS % (AUTO) 88.4 % (40.0-77.0); PLATELET COUNT (AUTO) 60 K/uL (130-400); RED BLOOD CELL COUNT(AUTO) 2.67 MIL/uL (4.50-6.20); RED CELL DISTRIBUTION WIDTH 19.9 % (11.0-15.5); WHITE BLOOD COUNT (AUTO) 4.4 K/uL (4.8-10.8)
[2024-01-07 07:40] LABS: POTASSIUM 4.6 mmol/L (3.5-5.1); TOTAL PROTEIN, SERUM 6.9 g/dL (6.0-8.3)
[2024-01-07] MEDS: metoPROLOL tartRATE 25 MG TAB PO ONE (08:00)
--- NOTE | 2024-01-07 11:28 | HMCIMG ---
CT ABDOMEN WITHOUT CONTRAST. CT PELVIS WITHOUT CONTRAST. INDICATION: Urinary retention TECHNIQUE: Routine transaxial imaging using 5 mm slice thickness through the abdomen and pelvis without the administration of IV contrast. Thin slice reconstructions are also provided. Coronal and sagittal reformatted images acquired for interpretation. CT was performed with one or more of the following dose reduction techniques: Automated exposure control, adjustment of the mA and/or kV according to patient size, or use of iterative reconstruction technique. COMPARISON: 12/21/2023 FINDINGS: ON NONCONTRAST IMAGING: ABDOMEN: Heart size is normal. Small to medium-sized left and trace right pleural effusions with subjacent passive opacities. Gastrostomy tube is in place. No abnormal renal calcifications, hydronephrosis, perinephric inflammation, or proximal hydroureter detected. Small simple left renal cyst. The liver is decreased in size and nodular in contour without biliary duct dilation. Superolateral right hepatic lobe hemorrhagic mass. A couple of additional subcentimeter simple cysts within the posterior right hepatic lobe with Hounsfield units corresponding to water attenuation. Spleen remains enlarged. The gallbladder is absent. The pancreas appears normal without pancreatic duct dilation. The adrenal glands appear normal. No significant abdominal, retrocrural or retroperitoneal adenopathy noted. No evidence for intra-abdominal free air or organized fluid collection. Small amount of free fluid scattered throughout the abdomen and pelvis. Mild calcific plaque is noted along the abdominal aortic and iliac vessel bernal without aneurysmal dilation. PELVIS: Penile pump hardware noted. No abnormal calcifications within the urinary bladder or distal ureters. No evidence for free air or organized pelvic fluid collection. No significant pelvic adenopathy detected. Visualized small and large bowel loops appear unremarkable. Terminal ileum appears unremarkable. The appendix is not well-visualized. Visible osseous structures are intact. IMPRESSION: 1. Cirrhotic liver with superimposed now hemorrhagic superolateral right hepatic lobe tumor. 2. Splenomegaly. 3. Small-volume abdominopelvic ascites. 4. Small to medium-sized left and trace right pleural effusions with subjacent passive atelectasis. 5.5 cm
--- NOTE | 2024-01-07 14:03 | PN ---
[facility] PROGRESS NOTE Date of Service: Jan 07, 2024 Time of Service: 14:01 Patient was seen and examined. Multiple unsuccessful attempts to the suprapubic catheter was tried. Patient was agitated overnight and was Xanax did not seem to help we will try Seroquel. We will also restart his sertraline SUBJECTIVE: The patient is a 73-year-old chronically ill looking male a resident of [facility] with past medical history of hepatocellular carcinoma status post chemoembolization on chemotherapy, hypertension, hyperlipidemia, diabetes, CVA, gout, prostate cancer with chronic suprapubic catheter use, artificial urinary sphincter, coronary artery disease, atrial fibrillation and CHF who was brought to ER by EMS due to suprapubic catheter was pulled out approximately around 11:00 PM yesterday .Reportedly patient was uncomfortable and had a urinary retention. An attempt to insert a new suprapubic cath per ER MD was unsuccessful. The patient had urge to void urine at midnight and had a successful episode of passing urine on his own at bedside. He had multiple hospitalizations last month at this facility for Acute metabolic encephalopathy and Septic shock . The patient denies fever, chills ,abdominal pain ,chest pain, palpitation and shortness of breath. The patient was forgetful on presentation however, per family this is his baseline. On presentations, his vitals were stable. Labs showed Hemoglobin 8.3, hematocrit 25.9 platelet count 49, BUN 40, creatinine 1.7, GFR 42, total calcium 8.3. Urinalysis appeared dark brown, positive for large occult blood, leucocyte esterase 250, RBCs too numerous to count. The patient will be admitted on the medical surgical floor for the management of Complicated UTI. 01/05/24: The patient was examined today in ED3. He is alert, oriented to time, place and person at the moment. He denies any c/o chest pain, dizziness, burning micturition or abdominal discomfort. Urine culture was sent, he will be started on soft diet. Urologist consult was made to evaluate if the patient needed reinsertion of suprapubic catheter, recommendations are pending. The patient is pending bed on Medical Surgical floor. Further assessment and plan as discussed below. 01/06/24: The patient was examined today at bedside. He is drowsy, sleepy, and slightly confused, on 1 L of nasal cannula. His is at bedside, he denies any complaints of chest pain, dizziness, or any abdominal discomfort. Urine culture showed CFU [id number], gram positive cocci in clusters. Sensitivities pending. He is still pending suprapubic catheter placement by IR most likely today. The patient has been voiding on his own until now. The decision of the patient needing suprapubic catheter placement will be made by the urologist. Follow up with the recommendations. He has PEG tube in placed due to not able to have enough appetite to consume food through mouth. Senior Wealth Advisor consult was made, recommendations are mentioned under notes. He also has staplers on abdomen from previous surgery and wound on buttocks, wound consult was made yesterday, follow up with the recommendations when available. Labs: Hemoglobin 8.8, platelets 56, BUN 40, creatinine 1.8, GFR 39, total bilirubin 2.6, albumin 1.7, AST 41, alkaline phosphatase 230, PT 12.7 (9.6-11 .6), INR 1.19 (0.85-1.15) For the assessment and plan discussed below. REVIEW OF SYSTEMS CONSTITUTIONAL: Denies fevers, chills, or night sweats. No unintentional weight loss reported. NEUROLOGICAL: Denies headache, amaurosis fugax, motor weakness, sensory deficit, vertigo/spinning sensation, gait abnormalities, or tremors. ENT: No hearing loss, otalgia, otorrhea, rhinitis, rhinorrhea, hoarseness, or sore throat. CARDIOVASCULAR: Denies any exertional angina, dyspnea on exertion, orthopnea, paroxysmal nocturnal dyspnea, palpitations, life-threatening arrhythmias, claudication. PULMONARY: Denies any shortness of breath, cough, phlegm/sputum, hemoptysis, pleuritic chest pain. SLEEP: Denies morning headaches, daytime somnolence or napping. Denies difficulty falling asleep, staying asleep, waking from sleep. Denies knowledge of snoring. GASTROINTESTINAL: Denies any type of dysphagia to either liquids or solids. Denies nausea, vomiting, pyrosis, early satiety, abdominal pain, diarrhea, constipation, or changes in stool consistency or caliber. Denies coffee-ground emesis, hematemesis, hematochezia, or melanotic stools. GENITOURINARY: Denies frequency, urgency, nocturia, hematuria or incontinence (Storage/Irritative symptoms.) Low urinary stream, straining to void, urinary intermittency or hesitancy, splitting of the voiding stream, terminal dribbling. ENDOCRINOLOGIC: Denies polyuria, polydipsia, polyphagia or heat/cold intolerances. HEMATOLOGIC: Denies thrombophilia/previous clots, or coagulopathy/bleeding disorders. ONCOLOGIC: Denies personal history of malignancy. DERMATOLOGIC: Denies rashes or pruritus. PSYCHIATRIC: Denies any suicidal or homicidal ideation. Denies hallucinations. PHYSICAL EXAM GENERAL APPEARANCE: The patient is awake, alert, and oriented, in no acute cardiopulmonary distress. NEUROLOGICAL: Cranial nerves II-XII grossly intact. Motor is 5/5 in bilateral upper and lower extremities proximal to distal. No sensory deficits. HEENT: Face is symmetric. Pupils are equal and reactive. Extraocular movements are intact. NECK: Supple. No JVD. No thyromegaly. No submental, submandibular, pre-/postau ricular, occipital or supraclavicular lymphadenopathy. CHEST: Normal chest expansion. No Telemetry. LUNGS: Absence of any rales, rhonchi or any wheezing. CARDIOVASCULAR: Regular. S1 and S2 normal. No appreciable rubs, murmurs or gallops. ABDOMEN: soft, non-tender, non-distended, normal bowel sounds, no guarding or rebound. Obese abdomen with multiple healed scars in the midabdomen area. Horizontal incision with multiple shubham in the suprapubic area with small amount of purulent drainage from the stoma noted. There was an area which appeared to be dehiscing and some of the shubham came loose. : Deferred. No [place]. EXTREMITIES: 2+ edema to bilateral lower extremities SKIN: No skin breakdown. Vital Signs (last 8hr) Date Time Temp Pulse Resp B/P (MAP) Pulse Ox O2 Delivery O2 Flow Rate FiO2 01/07/24 12:00 98.1 76 20 107/57 98 Nasal Cannula 2.0 01/07/24 08:00 97.5 136 19 112/68 95 Room Air 21 LABS: Laboratory: Test 01/07/24 07:09 01/06/24 09:27 01/05/24 17:01 Range/Units White Blood Count 4.4 L 4.8-10.8 K/uL Red Blood Count 2.67 L 4.50-6.20 MIL/uL Hemoglobin 9.4 L 14.0-18.0 g/dL Hematocrit 29.1 L 42-54 % Mean Corpuscular Volume 109.0 H 79-99 fL Mean Corpuscular Hemoglobin 35.2 H 27.0-33.0 pg Mean Corpuscular Hemoglobin Concent 32.3 32.0-36.0 g/dL Red Cell Distribution Width 19.9 H 11.0-15.5 % Platelet Count 60 L 130-400 K/uL Mean Platelet Volume 11.5 H 7.5-10.5 fL Immature Granulocyte % (Auto) 0.5 0-1 % Neutrophils (%) (Auto) 88.4 H 40.0-77.0 % Lymphocytes (%) (Auto) 8.8 L 21.0-51.0 % Monocytes (%) (Auto) 2.3 L 3.0-13.0 % Eosinophils (%) (Auto) 0.0 0.0-8.0 % Basophils (%) (Auto) 0.0 0.0-5.0 % Neutrophils # (Auto) 3.9 1.8-7.7 K/uL Lymphocytes # (Auto) 0.4 L 1.0-4.8 K/uL Monocytes # (Auto) 0.1 0.1-1.0 K/uL Eosinophils # (Auto) 0.00 0.00-0.70 K/uL Basophils # (Auto) 0.00 0.00-0.20 K/uL Absolute Immature Granulocyte (auto 0.02 0-1 K/uL Nucleated Red Blood Cells 0.0 0.0-0.19 % White Cell Morphology Comment See comments Sodium Level 141 136-145 mmol/L Potassium Level 4.6 3.5-5.1 mmol/L Chloride Level 103 101-111 mmol/L Carbon Dioxide Level 31 21-32 mmol/L Blood Urea Nitrogen 42 H 7-18 mg/dL Creatinine 2.0 H 0.5-1.3 mg/dL Glomerular Filtration Rate Calc 34 >90 mL/min Random Glucose 165 H 70-105 mg/dL Total Calcium 8.6 8.5-10.1 mg/dL Total Bilirubin 2.0 H 0.2-1.0 mg/dL Aspartate Amino Transf (AST/SGOT) 43 H 10-37 U/L Alanine Aminotransferase (ALT/SGPT) 19 12-78 U/L Alkaline Phosphatase 250 H 50-136 U/L Total Protein 6.9 6.0-8.3 g/dL Albumin 2.0 L 3.5-5.0 g/dL Prothrombin Time 12.7 H 9.6-11.6 SEC Prothromb Time International Ratio 1.19 H 0.85-1.15 Vitamin B12 Level 1956 H 193-986 pg/mL Vitamin D 25-Hydroxy 54.1 30.0-100.0 ng/mL Ammonia 15 11-32 umol/L Current Medications Medications (Trade) Dose Ordered Sig/Luis Armando Route PRN Reason Start Time Stop Time Status Last Admin Dose Admin Acetaminophen (TYLenol 325MG TAB) 650 mg Q4H PRN PO MILD PAIN (1-3) 01/05/24 04:00 02/04/24 03:59 Acetaminophen (TYLenol 325MG TAB) 650 mg Q6H PRN PO TEMPERATURE GREATER THAN 101.5 01/05/24 04:00 02/04/24 03:59 Ceftriaxone Sodium 1 gm/ Sodium Chloride 50 ml @ 100 mls/hr BID IV 01/05/24 09:00 01/05/24 04:00 DC Diltiazem HCl (CARDIzem 60MG TAB) 30 mg DAILY PEG 01/05/24 10:30 02/04/24 10:29 01/07/24 08:40 30 MG Diltiazem HCl (CARDIzem 60MG TAB) 30 mg DAILY PEG 01/06/24 09:00 01/05/24 14:57 DC Famotidine (Pepcid 20mg Vial) 20 mg DAILY IV 01/05/24 09:00 02/04/24 08:59 01/07/24 08:39 20 MG Lactulose (Constulose 20gm/ 30ml Udcup) 20 gm BID PRN PO CONSTIPATION 01/05/24 17:00 02/04/24 16:59 Levofloxacin/ Dextrose (LEvaquIN 750 MG/ D5W 150 ML) 750 mg Q48H IV 01/05/24 09:00 01/15/24 08:59 01/07/24 08:41 750 MG Metoprolol Tartrate (loprESSOR) 25 mg BID PEG 01/05/24 10:30 02/04/24 10:29 01/07/24 08:39 25 MG Metoprolol Tartrate (loprESSOR) 25 mg BID PEG 01/05/24 21:00 01/05/24 14:58 DC Ondansetron HCl (zoFRAN 4MG INJ) 4 mg Q6H PRN IV NAUSEA/VOMITING 01/05/24 04:00 02/04/24 03:59 DIAGNOSTICS / RADIOLOGY: [ ] ASSESSMENT: Suprapubic dislodgement of the catheter POA Acute on chronic urinary retention POA Prostate cancer POA Acute urinary tract infection POA Acute anemia POA Acute Thrombocytopenia POA Stage 3 renal disease POA Atrial fibrillation POA CHF POA Type 2 Diabetes POA CVA POA Altered mental status POA Pressure ulcers Allergy to Clindamycin, Ceftriaxone, doxycycline, Vancomycin PLAN: The patient remains admitted on medical surgical floor. Suprapubic dislodgement of the catheter POA Acute on chronic urinary retention POA * The patient is able to void on his own for now, monitor urine output. * Multiple attempts to reinsert the suprapubic catheter were not successful Acute urinary tract infection POA * Continue with Levofloxacin 750 mg IV Q48. Urine culture showed CFU [id number], gram-positive cocci in the clusters, sensitivities pending. Follow up on the results are available. * The patient is Allergic to Clindamycin, Ceftriaxone, doxycycline, Vancomycin Atrial fibrillation POA * Hold on Eliquis 2.5 MG today given hematuria. * Continue with Diltiazem 60 MG PO daily. Pressure ulcers Wound care consult is pending, follow up when the recommendations are available. * Replace electrolytes as needed per protocol * Continue on heart healthy diet * Continue with Metoprolol 25 MG, Hold Furosemide 25 MG today since the BP is on softer side. Hold BP medication until the blood pressure is on the softer side. * Continue on famotidine 20 mg p.o. bid for GI prophylaxis * on insulin sliding scale AC & HS with hypoglycemia protocol * Keep the wound site dry and clear. * PRN medication for fever,pain,nausea and vomiting AM Labs: CBC, CMP LANE ROSALES MD Jan 07, 2024 14:03
[2024-01-07] MEDS: queTIAPine fuMARate 25 MG TAB PO ONE (14:39)
[2024-01-07] MEDS: queTIAPine fuMARate 25 MG TAB PO SCH ×2 (16:30→16:41)
[2024-01-08 04:00] VITALS: BP 99/56; PULSE 95; RESP 18; TEMP 98
[2024-01-08 04:47] LABS: BASOPHILS # (AUTO) 0.01 K/uL (0.00-0.20); BASOPHILS % (AUTO) 0.4 % (0.0-5.0); EOSINOPHILS # (AUTO) 0.07 K/uL (0.00-0.70); EOSINOPHILS % (AUTO) 2.5 % (0.0-8.0); HEMATOCRIT 25.6 % (42-54); IMMATURE GRANULOCYTE ABSOLUTE 0.01 K/uL (0-1); LYMPHOCYTES # (AUTO) 0.5 K/uL (1.0-4.8); LYMPHOCYTES % (AUTO) 17.1 % (21.0-51.0); MEAN CORPUSCULAR VOLUME 109.4 fL (79-99); MONOCYTES # (AUTO) 0.2 K/uL (0.1-1.0); MONOCYTES % (AUTO) 8.7 % (3.0-13.0); NEUTROPHILS % (AUTO) 70.9 % (40.0-77.0); PLATELET COUNT (AUTO) 58 K/uL (130-400); RED BLOOD CELL COUNT(AUTO) 2.34 MIL/uL (4.50-6.20); RED CELL DISTRIBUTION WIDTH 19.2 % (11.0-15.5); WHITE BLOOD COUNT (AUTO) 2.8 K/uL (4.8-10.8)
[2024-01-08 04:57] LABS: POTASSIUM 3.7 mmol/L (3.5-5.1)
[2024-01-08 06:03] LABS: BAND NEUTROPHILS % (MANUAL) 8 % (0-2); LYMPHOCYTES % (MANUAL) 12 % (22-44); MAN.DIFF COMMENT-IMPRESSION MANUAL DIFFERENTIAL; MONOCYTES % (MANUAL) 7 % (2-9); PLATELET MORPHOLOGY COMMENT DECREASED; REACTIVE LYMPHOCYTES 2 % (0-0); SEGMENTED NEUTROPHILS % 71 % (40-70); TOTAL CELLS COUNTED 100; WBC MORPHOLOGY REACTIVE LYMPHS 1+
[2024-01-08 07:44] VITALS: BP 116/66; PULSE 109; RESP 20; TEMP 97.9
[2024-01-08 08:00] VITALS: O2SAT 96
--- NOTE | 2024-01-08 08:36 | PN ---
[facility] PROGRESS NOTE Date of Service: Jan 08, 2024 Time of Service: 08:30 SUBJECTIVE: The patient is a 73-year-old chronically ill looking male a resident of [facility] with past medical history of hepatocellular carcinoma status post chemoembolization on chemotherapy, hypertension, hyperlipidemia, diabetes, CVA, gout, prostate cancer with chronic suprapubic catheter use, artificial urinary sphincter, coronary artery disease, atrial fibrillation and CHF who was brought to ER by EMS due to suprapubic catheter was pulled out approximately around 11:00 PM yesterday .Reportedly patient was uncomfortable and had a urinary retention. An attempt to insert a new suprapubic cath per ER MD was unsuccessful. The patient had urge to void urine at midnight and had a successful episode of passing urine on his own at bedside. He had multiple hospitalizations last month at this facility for Acute metabolic encephalopathy and Septic shock . The patient denies fever, chills ,abdominal pain ,chest pain, palpitation and shortness of breath. The patient was forgetful on presentation however, per family this is his baseline. On presentations, his vitals were stable. Labs showed Hemoglobin 8.3, hematocrit 25.9 platelet count 49, BUN 40, creatinine 1.7, GFR 42, total calcium 8.3. Urinalysis appeared dark brown, positive for large occult blood, leucocyte esterase 250, RBCs too numerous to count. The patient will be admitted on the medical surgical floor for the management of Complicated UTI. 01/05/24: The patient was examined today in ED3. He is alert, oriented to time, place and person at the moment. He denies any c/o chest pain, dizziness, burning micturition or abdominal discomfort. Urine culture was sent, he will be started on soft diet. Urologist consult was made to evaluate if the patient needed reinsertion of suprapubic catheter, recommendations are pending. The patient is pending bed on Medical Surgical floor. Further assessment and plan as discussed below. 01/06/24: The patient was examined today at bedside. He is drowsy, sleepy, and slightly confused, on 1 L of nasal cannula. His is at bedside, he denies any complaints of chest pain, dizziness, or any abdominal discomfort. Urine culture showed CFU [id number], gram positive cocci in clusters. Sensitivities pending. He is still pending suprapubic catheter placement by IR most likely today. The patient has been voiding on his own until now. The decision of the patient needing suprapubic catheter placement will be made by the urologist. Follow up with the recommendations. He has PEG tube in placed due to not able to have enough appetite to consume food through mouth. Bacteriology Research Assistant consult was made, recommendations are mentioned under notes. He also has staplers on abdomen from previous surgery and wound on buttocks, wound consult was made yesterday, follow up with the recommendations when available. Labs: Hemoglobin 8.8, platelets 56, BUN 40, creatinine 1.8, GFR 39, total bilirubin 2.6, albumin 1.7, AST 41, alkaline phosphatase 230, PT 12.7 (9.6- 11.6), INR 1.19 (0.85-1.15) For the assessment and plan discussed below. 01/08/2024 patient is seen and examined with attending. Displaced suprapubic catheter. Multiple unsuccessful attempts were made to recanalized the suprapubic tract, dislodged per patient gastrostomy tube. Given to unsuccessful suprapubic placement we will get a bladder scan to make sure patient has no residual. Calorie count x3 days. Waiting for Urology for orders to remove shubham. Primary nurse reports no events overnight. REVIEW OF SYSTEMS CONSTITUTIONAL: Denies fevers, chills, or night sweats. No unintentional weight loss reported. NEUROLOGICAL: Denies headache, amaurosis fugax, motor weakness, sensory deficit, vertigo/spinning sensation, gait abnormalities, or tremors. ENT: No hearing loss, otalgia, otorrhea, rhinitis, rhinorrhea, hoarseness, or sore throat. CARDIOVASCULAR: Denies any exertional angina, dyspnea on exertion, orthopnea, paroxysmal nocturnal dyspnea, palpitations, life-threatening arrhythmias, claudication. PULMONARY: Denies any shortness of breath, cough, phlegm/sputum, hemoptysis, pleuritic chest pain. SLEEP: Denies morning headaches, daytime somnolence or napping. Denies difficulty falling asleep, staying asleep, waking from sleep. Denies knowledge of snoring. GASTROINTESTINAL: Denies any type of dysphagia to either liquids or solids. Denies nausea, vomiting, pyrosis, early satiety, abdominal pain, diarrhea, constipation, or changes in stool consistency or caliber. Denies coffee-ground emesis, hematemesis, hematochezia, or melanotic stools. GENITOURINARY: Denies frequency, urgency, nocturia, hematuria or incontinence (Storage/Irritative symptoms.) Low urinary stream, straining to void, urinary intermittency or hesitancy, splitting of the voiding stream, terminal dribbling. ENDOCRINOLOGIC: Denies polyuria, polydipsia, polyphagia or heat/cold intolerances. HEMATOLOGIC: Denies thrombophilia/previous clots, or coagulopathy/bleeding disorders. ONCOLOGIC: Denies personal history of malignancy. DERMATOLOGIC: Denies rashes or pruritus. PSYCHIATRIC: Denies any suicidal or homicidal ideation. Denies hallucinations. PHYSICAL EXAM GENERAL APPEARANCE: The patient is awake, alert, and oriented, in no acute cardiopulmonary distress. NEUROLOGICAL: Cranial nerves II-XII grossly intact. Motor is 5/5 in bilateral upper and lower extremities proximal to distal. No sensory deficits. HEENT: Face is symmetric. Pupils are equal and reactive. Extraocular movements are intact. NECK: Supple. No JVD. No thyromegaly. No submental, submandibular, pre- /postauricular, occipital or supraclavicular lymphadenopathy. CHEST: Normal chest expansion. No Telemetry. LUNGS: Absence of any rales, rhonchi or any wheezing. CARDIOVASCULAR: Regular. S1 and S2 normal. No appreciable rubs, murmurs or gallops. ABDOMEN: soft, non-tender, non-distended, normal bowel sounds, no guarding or rebound. Obese abdomen with multiple healed scars in the midabdomen area. Horizontal incision with multiple shubham in the suprapubic area with small amount of purulent drainage from the stoma noted. There was an area which appeared to be dehiscing and some of the shubham came loose. : Deferred. No Villalp[place]. EXTREMITIES: 2+ edema to bilateral lower extremities SKIN: No skin breakdown. Vital Signs (last 8hr) Date Time Temp Pulse Resp B/P (MAP) Pulse Ox O2 Delivery O2 Flow Rate FiO2 01/08/24 07:44 97.9 109 20 116/66 93 Room Air 21 01/08/24 04:00 98.1 95 18 99/56 93 Nasal Cannula 2.0 LABS: Laboratory: Test 01/08/24 04:16 01/07/24 07:09 01/06/24 09:27 Range/Units White Blood Count 2.8 #L 4.8-10.8 K/uL Red Blood Count 2.34 L 4.50-6.20 MIL/uL Hemoglobin 8.2 L 14.0-18.0 g/dL Hematocrit 25.6 L 42-54 % Mean Corpuscular Volume 109.4 H 79-99 fL Mean Corpuscular Hemoglobin 35.0 H 27.0-33.0 pg Mean Corpuscular Hemoglobin Concent 32.0 32.0-36.0 g/dL Red Cell Distribution Width 19.2 H 11.0-15.5 % Platelet Count 58 L 130-400 K/uL Mean Platelet Volume 11.1 H 7.5-10.5 fL Immature Granulocyte % (Auto) 0.4 0-1 % Neutrophils (%) (Auto) 70.9 40.0-77.0 % Lymphocytes (%) (Auto) 17.1 L 21.0-51.0 % Monocytes (%) (Auto) 8.7 3.0-13.0 % Eosinophils (%) (Auto) 2.5 0.0-8.0 % Basophils (%) (Auto) 0.4 0.0-5.0 % Neutrophils # (Auto) 2.0 1.8-7.7 K/uL Lymphocytes # (Auto) 0.5 L 1.0-4.8 K/uL Monocytes # (Auto) 0.2 0.1-1.0 K/uL Eosinophils # (Auto) 0.07 0.00-0.70 K/uL Basophils # (Auto) 0.01 0.00-0.20 K/uL Absolute Immature Granulocyte (auto 0.01 0-1 K/uL Segmented Neutrophils % 71 H 40-70 % Band Neutrophils % 8 H 0-2 % Lymphocytes % (Manual) 12 L 22-44 % Monocytes % (Manual) 7 2-9 % Nucleated Red Blood Cells 0.0 0.0-0.19 % Differential Comment MANUAL DIFFERENTIAL Reactive Lymphocytes 2 H 0-0 % White Cell Morphology Comment REACTIVE LYMPHS 1+ Platelet Morphology Comment DECREASED Red Blood Cell Morphology See comments Sodium Level 141 136-145 mmol/L Potassium Level 3.7 3.5-5.1 mmol/L Chloride Level 104 101-111 mmol/L Carbon Dioxide Level 28 21-32 mmol/L Blood Urea Nitrogen 44 H 7-18 mg/dL Creatinine 2.0 H 0.5-1.3 mg/dL Glomerular Filtration Rate Calc 34 >90 mL/min Random Glucose 116 H 70-105 mg/dL Total Calcium 8.3 L 8.5-10.1 mg/dL Total Bilirubin 2.0 H 0.2-1.0 mg/dL Aspartate Amino Transf (AST/SGOT) 43 H 10-37 U/L Alanine Aminotransferase (ALT/SGPT) 19 12-78 U/L Alkaline Phosphatase 250 H 50-136 U/L Total Protein 6.9 6.0-8.3 g/dL Albumin 2.0 L 3.5-5.0 g/dL Prothrombin Time 12.7 H 9.6-11.6 SEC Prothromb Time International Ratio 1.19 H 0.85-1.15 Vitamin B12 Level 1956 H 193-986 pg/mL Vitamin D 25-Hydroxy 54.1 30.0-100.0 ng/mL Current Medications Medications (Trade) Dose Ordered Sig/Luis Armando Route PRN Reason Start Time Stop Time Status Last Admin Dose Admin Acetaminophen (TYLenol 325MG TAB) 650 mg Q4H PRN PO MILD PAIN (1-3) 01/05/24 04:00 02/04/24 03:59 Acetaminophen (TYLenol 325MG TAB) 650 mg Q6H PRN PO TEMPERATURE GREATER THAN 101.5 01/05/24 04:00 02/04/24 03:59 Ceftriaxone Sodium 1 gm/ Sodium Chloride 50 ml @ 100 mls/hr BID IV 01/05/24 09:00 01/05/24 04:00 DC Diltiazem HCl (CARDIzem 60MG TAB) 30 mg DAILY PEG 01/05/24 10:30 02/04/24 10:29 01/07/24 08:40 30 MG Diltiazem HCl (CARDIzem 60MG TAB) 30 mg DAILY PEG 01/06/24 09:00 01/05/24 14:57 DC Famotidine (Pepcid 20mg Vial) 20 mg DAILY IV 01/05/24 09:00 02/04/24 08:59 01/07/24 08:39 20 MG Lactulose (Constulose 20gm/ 30ml Udcup) 20 gm BID PRN PO CONSTIPATION 01/05/24 17:00 02/04/24 16:59 Levofloxacin/ Dextrose (LEvaquIN 750 MG/ D5W 150 ML) 750 mg Q48H IV 01/05/24 09:00 01/15/24 08:59 01/07/24 08:41 750 MG Metoprolol Tartrate (loprESSOR) 25 mg BID PEG 01/05/24 10:30 02/04/24 10:29 01/07/24 08:39 25 MG Metoprolol Tartrate (loprESSOR) 25 mg BID PEG 01/05/24 21:00 01/05/24 14:58 DC Ondansetron HCl (zoFRAN 4MG INJ) 4 mg Q6H PRN IV NAUSEA/VOMITING 01/05/24 04:00 02/04/24 03:59 Quetiapine Fumarate (SEROquel 25 mg TAB) 25 mg ONCE PO 01/07/24 16:30 01/07/24 21:30 DC 01/07/24 16:41 25 MG Quetiapine Fumarate (SEROquel 25 mg TAB) 25 mg Q6H PO 01/07/24 16:30 02/06/24 16:29 01/07/24 20:09 25 MG Sertraline HCl (ZOloft 50 mg tab) 25 mg DAILY PEG 01/08/24 09:00 02/07/24 08:59 DIAGNOSTICS / RADIOLOGY: [ ] ASSESSMENT: Suprapubic dislodgement of the catheter POA unsuccessful attempts Acute on chronic urinary retention POA Prostate cancer POA Acute urinary tract infection POA Acute anemia POA Acute Thrombocytopenia POA Stage 3 renal disease POA MARBELLA on Chronic renal disease POA Atrial fibrillation POA CHF POA Type 2 Diabetes POA CVA POA Altered mental status with behavioral disturbance POA Pressure ulcers Allergy to Clindamycin, Ceftriaxone, doxycycline, Vancomycin Dislodged per patient gastrostomy tube not POA Hematuria resolved Severe protein calorie malnutrition PLAN: The patient remains admitted on medical surgical floor. Suprapubic dislodgement of the catheter POA Acute on chronic urinary retention POA * The patient is able to void on his own for now, monitor urine output. * Multiple attempts to reinsert the suprapubic catheter were not successful Bladder scan x1 to check residual Acute urinary tract infection POA * Continue with Levofloxacin 750 mg IV Q48. Urine culture showed CFU [id number], gram-positive cocci in the clusters, sensitivities pending. Follow up on the results are available. * The patient is Allergic to Clindamycin, Ceftriaxone, doxycycline, Vancomycin Atrial fibrillation POA * Hold on Eliquis 2.5 MG today given hematuria. * Continue with Diltiazem 60 MG PO daily. Pressure ulcers Wound care consult is pending, follow up when the recommendations are available. * Replace electrolytes as needed per protocol * Continue on heart healthy diet * Continue with Metoprolol 25 MG, Hold Furosemide 25 MG today since the BP is on softer side. Hold BP medication until the blood pressure is on the softer side. * Continue on famotidine 20 mg p.o. bid for GI prophylaxis * on insulin sliding scale AC & HS with hypoglycemia protocol * Keep the wound site dry and clear. * PRN medication for fever,pain,nausea and vomiting Acute thrombocytopenia we will consult Hematology We will monitor for bleeding, anemia workup and flow cytometry MARBELLA: creatinine 2.0 will bring in Electrical Engineer Evp And Chief Operating Officer consulted: severe protein calorie malnutrition Calorie count; possible GI for possible resertion on peg tube AM Labs: CBC, CMP ATTESTATION BY PHYSICIAN I have seen and examined the patient. I reviewed the documentation, medical decision making, and treatment plan as noted by the resident provider above. I agree with the findings and plan of care. Te Lambert MD, ELIZABETH NP Jan 08, 2024 08:36
--- NOTE | 2024-01-08 09:28 | NUR ---
DR. TONG MADE AWARE OF CONSULT. PAGED DR. MIKE REGARDING CONSULT.
--- NOTE | 2024-01-08 10:17 | CONS ---
REASON FOR CONSULTATION: Thrombocytopenia. CONSULT REQUESTED BY: eT Lambert MD HISTORY OF PRESENT ILLNESS: This is a 73-year-old male with multiple medical problems, who had a suprapubic catheter in place that got dislodged. It was not possible to place it back and that is why the patient has been admitted. Also, he has been found to have a UTI, for which he is receiving IV antibiotic. At this time, the patient is feeling okay. He has no complaints. PAST MEDICAL HISTORY: Hepatocellular carcinoma, status post chemoembolization, liver cirrhosis, hypertension, hyperlipidemia, diabetes, CVA, gout, prostate cancer, coronary artery disease, atrial fibrillation, and CHF. PAST SURGICAL HISTORY: PEG tube placement, suprapubic catheter placement, artificial urinary sphincter. SOCIAL HISTORY: The patient does not smoke or drink currently. ALLERGIES: IODINE, CEFTRIAXONE, CLINDAMYCIN, VANCOMYCIN, AND DOXYCYCLINE. REVIEW OF SYSTEMS: CONSTITUTIONAL: The patient feels somewhat weak, tired. No chills, no fever, no anorexia. GASTROINTESTINAL: No nausea, no vomiting, no diarrhea, no constipation. RESPIRATORY: No shortness of breath, no cough. CARDIOVASCULAR: No chest pain, no palpitations. ENDOCRINE: No polyuria, no polydipsia, no facial swelling, no weight gain. NEUROLOGIC: No paresthesias, no strokes, no seizures. HEMATOLOGY: No fatigue, no pallor, no facial plethora, no petechiae. MUSCULOSKELETAL: No bony pains or aches. No joint deformities, no joint stiffness, no back pain. PHYSICAL EXAMINATION: VITAL SIGNS: Temperature 97.9, heart rate 109, respiratory rate 20, blood pressure 116/66. GENERAL: The patient is in no acute distress. HEENT: Oral examination normal. LUNGS: Clear to auscultation bilaterally. HEART: Regular rate. No murmurs. ABDOMEN: Bowel sounds positive. Soft, nontender. No masses. EXTREMITIES: No edema, no palpable lymph nodes. LABORATORY DATA: White blood cells 2.8, hemoglobin 8.2, hematocrit 25.6, MCV 109.4, PLT 58. PT 12.7, INR 1.19. IMPRESSION: * The patient admitted for dislodged suprapubic catheter. It seems the patient is being able to urinate. * The patient has been found to have urinary tract infection, for which he is taking IV antibiotics. * The patient has thrombocytopenia and the range of the platelet count the patient has had throughout the hospitalization is consistent with expected for a patient with liver cirrhosis, which the patient has. PLAN: * The patient will continue antibiotics to treat the urinary tract infection. * He will follow up with his oncologist for management of the liver cancer. TID: [id number] RECEIPT: [id number]
[2024-01-08] MEDS: SERTraline HCL 50 MG TABLET PEG SCH (11:30)
[2024-01-08 12:00] VITALS: BP 105/58; PULSE 90; RESP 18; TEMP 97.8
--- NOTE | 2024-01-08 13:16 | CONS ---
NEPHROLOGY CONSULTATION NOTE Date/Time Patient Seen: Jan 08, 2024 1150 Reason for Consultation: Suprapubic catheter dislodgement, acute on chronic renal failure HISTORY OF PRESENT ILLNESS: This is a 73-year-old male with a past medical history of hepatocellular carcino ma S/p chemoembolization and chemotherapy, hyperlipidemia, history of CVA, gout, prostate cancer, artificial urinary sphincter, suprapubic catheter, coronary artery disease, atrial fibrillation anticoagulation with Eliquis, hypertension, diabetes mellitus type 2, anemia. He presented to the emergency room from [facility] via EMS due to dislodgement of suprapubic catheter. Suprapubic catheter was placed by Dr. Sky seen last hospital admission. Pending further Urology recommendations. He was noted with elevated BUN/creatinine. We are consulted for renal failure. Renal function is stable Electrolytes are stable. Was seen in the medical floor, in no acute distress Family is voicing frustration over not being able to contact urologist. Prognosis remains guarded REVIEW OF SYSTEMS: GENERAL: Positive for generalized weakness and suprapubic catheter dislodgement NEUROLOGIC: Negative for any blurry vision, blind spots, double vision, facial asymmetry, dysphagia, dysarthria, hemiparesis, hemisensory deficits, vertigo, ataxia. HEENT: Negative for any head trauma, neck trauma, neck stiffness, photophobia, phonophobia, sinusitis, rhinitis. CARDIAC: Negative for any chest pain, dyspnea on exertion, paroxysmal nocturnal dyspnea, peripheral edema. PULMONARY: Negative for any shortness of breath, wheezing, COPD, or TB exposure. GASTROINTESTINAL: Negative for any abdominal pain, nausea, vomiting, bright red blood per rectum, melena. GENITOURINARY: Negative for any dysuria, hematuria, incontinence. INTEGUMENTARY: Negative for any rashes, cuts, insect bites. RHEUMATOLOGIC: Negative for any joint pains, photosensitive rashes, history of vasculitis or kidney problems. HEMATOLOGIC: Negative for any abnormal bruising, frequent infections or bleeding. PAST MEDICAL HISTORY: Hepatocellular carcinoma Hypertension Diabetes mellitus type 2 CVA Gout Prostate cancer Coronary artery disease CHF PAST SURGICAL HISTORY: Artificial urinary sphincter Suprapubic catheter placement PEG tube placement. PAST SOCIAL HISTORY: Resident at [facility] Denies any use of alcohol, tobacco or illicit drugs FAMILY HISTORY: Noncontributory PHYSICAL EXAM: GENERAL: Alert and oriented x 3. No acute distress. Well-nourished. EYES: EOMI. Anicteric. HENT: Moist mucous membranes. No scleral icterus. No cervical lymphadenopathy. LUNGS: Clear to auscultation bilaterally. No accessory muscle use. CARDIOVASCULAR: Regular rate and rhythm. No murmur. No JVD. ABDOMEN: Soft, non-tender and non-distended. No palpable masses. EXTREMITIES: No edema. Non-tender. SKIN: No rashes or lesions. Warm. NEUROLOGIC: No focal neurological deficits. CN II-XII grossly intact, but not individually tested. PSYCHIATRIC: Cooperative. Appropriate mood and affect. MEDICATIONS: [ ] Current Medications Medications (Trade) Dose Ordered Sig/Luis Armando Route PRN Reason Start Time Stop Time Status Last Admin Dose Admin Acetaminophen (TYLenol 325MG TAB) 650 mg Q4H PRN PO MILD PAIN (1-3) 01/05/24 04:00 02/04/24 03:59 Acetaminophen (TYLenol 325MG TAB) 650 mg Q6H PRN PO TEMPERATURE GREATER THAN 101.5 01/05/24 04:00 02/04/24 03:59 Ceftriaxone Sodium 1 gm/ Sodium Chloride 50 ml @ 100 mls/hr BID IV 01/05/24 09:00 01/05/24 04:00 DC Diltiazem HCl (CARDIzem 60MG TAB) 30 mg DAILY PEG 01/05/24 10:30 02/04/24 10:29 01/08/24 11:31 30 MG Diltiazem HCl (CARDIzem 60MG TAB) 30 mg DAILY PEG 01/06/24 09:00 01/05/24 14:57 DC Famotidine (Pepcid 20mg Vial) 20 mg DAILY IV 01/05/24 09:00 02/04/24 08:59 01/08/24 11:32 20 MG Lactulose (Constulose 20gm/ 30ml Udcup) 20 gm BID PRN PO CONSTIPATION 01/05/24 17:00 02/04/24 16:59 Levofloxacin/ Dextrose (LEvaquIN 750 MG/ D5W 150 ML) 750 mg Q48H IV 01/05/24 09:00 01/15/24 08:59 01/07/24 08:41 750 MG Metoprolol Tartrate (loprESSOR) 25 mg BID PEG 01/05/24 10:30 02/04/24 10:29 01/08/24 11:31 25 MG Metoprolol Tartrate (loprESSOR) 25 mg BID PEG 01/05/24 21:00 01/05/24 14:58 DC Ondansetron HCl (zoFRAN 4MG INJ) 4 mg Q6H PRN IV NAUSEA/VOMITING 01/05/24 04:00 02/04/24 03:59 Quetiapine Fumarate (SEROquel 25 mg TAB) 25 mg ONCE PO 01/07/24 16:30 01/07/24 21:30 DC 01/07/24 16:41 25 MG Quetiapine Fumarate (SEROquel 25 mg TAB) 25 mg Q6H PO 01/07/24 16:30 02/06/24 16:29 01/08/24 11:32 25 MG Sertraline HCl (ZOloft 50 mg tab) 25 mg DAILY PEG 01/08/24 09:00 02/07/24 08:59 01/08/24 11:30 25 MG Vital Signs (last 8hr) Date Time Temp Pulse Resp B/P (MAP) Pulse Ox O2 Delivery O2 Flow Rate FiO2 01/08/24 12:00 97.9 90 18 105/58 91 Room Air 21 01/08/24 07:44 97.9 109 20 116/66 93 Room Air 21 DIAGNOSTICS / RADIOLOGY: REASON: URINARY RETENTION ORDERING PHYSICIAN: MARLA SKY MD PROCEDURE: ABD PEL WO - CT ABDOMEN/PELVIS W/O CONTRAST CT ABDOMEN WITHOUT CONTRAST. CT PELVIS WITHOUT CONTRAST. INDICATION: Urinary retention TECHNIQUE: Routine transaxial imaging using 5 mm slice thickness through the abdomen and pelvis without the administration of IV contrast. Thin slice reconstructions are also provided. Coronal and sagittal reformatted images acquired for interpretation. CT was performed with one or more of the following dose reduction techniques: Automated exposure control, adjustment of the mA and/or kV according to patient size, or use of iterative reconstruction technique. COMPARISON: 12/21/2023 FINDINGS: ON NONCONTRAST IMAGING: ABDOMEN: Heart size is normal. Small to medium-sized left and trace right pleural effusions with subjacent passive opacities. Gastrostomy tube is in place. No abnormal renal calcifications, hydronephrosis, perinephric inflammation, or proximal hydroureter detected. Small simple left renal cyst. The liver is decreased in size and nodular in contour without biliary duct dilation. Superolateral right hepatic lobe hemorrhagic mass. A couple of additional subcentimeter simple cysts within the posterior right hepatic lobe with Hounsfield units corresponding to water attenuation. Spleen remains enlarged. The gallbladder is absent. The pancreas appears normal without pancreatic duct dilation. The adrenal glands appear normal. No significant abdominal, retrocrural or retroperitoneal adenopathy noted. No evidence for intra-abdominal free air or organized fluid collection. Small amount of free fluid scattered throughout the abdomen and pelvis. Mild calcific plaque is noted along the abdominal aortic and iliac vessel bernal without aneurysmal dilation. PELVIS: Penile pump hardware noted. No abnormal calcifications within the urinary bladder or distal ureters. No evidence for free air or organized pelvic fluid collection. No significant pelvic adenopathy detected. Visualized small and large bowel loops appear unremarkable. Terminal ileum appears unremarkable. The appendix is not well-visualized. Visible osseous structures are intact. IMPRESSION: 1. Cirrhotic liver with superimposed now hemorrhagic superolateral right hepatic lobe tumor. 2. Splenomegaly. 3. Small-volume abdominopelvic ascites. 4. Small to medium-sized left and trace right pleural effusions with subjacent passive atelectasis. 5.5 cm DICTATED BY: JOSEPH VALIENTE MD DATE: 01/07/24 1057 LABORATORY: [ ] Hematology Labs: Test 01/08/24 04:16 Range/Units White Blood Count 2.8 #L 4.8-10.8 K/uL Red Blood Count 2.34 L 4.50-6.20 MIL/uL Hemoglobin 8.2 L 14.0-18.0 g/dL Hematocrit 25.6 L 42-54 % Mean Corpuscular Volume 109.4 H 79-99 fL Mean Corpuscular Hemoglobin 35.0 H 27.0-33.0 pg Mean Corpuscular Hemoglobin Concent 32.0 32.0-36.0 g/dL Red Cell Distribution Width 19.2 H 11.0-15.5 % Platelet Count 58 L 130-400 K/uL Mean Platelet Volume 11.1 H 7.5-10.5 fL Immature Granulocyte % (Auto) 0.4 0-1 % Neutrophils (%) (Auto) 70.9 40.0-77.0 % Lymphocytes (%) (Auto) 17.1 L 21.0-51.0 % Monocytes (%) (Auto) 8.7 3.0-13.0 % Eosinophils (%) (Auto) 2.5 0.0-8.0 % Basophils (%) (Auto) 0.4 0.0-5.0 % Neutrophils # (Auto) 2.0 1.8-7.7 K/uL Lymphocytes # (Auto) 0.5 L 1.0-4.8 K/uL Monocytes # (Auto) 0.2 0.1-1.0 K/uL Eosinophils # (Auto) 0.07 0.00-0.70 K/uL Basophils # (Auto) 0.01 0.00-0.20 K/uL Absolute Immature Granulocyte (auto 0.01 0-1 K/uL Segmented Neutrophils % 71 H 40-70 % Band Neutrophils % 8 H 0-2 % Lymphocytes % (Manual) 12 L 22-44 % Monocytes % (Manual) 7 2-9 % Nucleated Red Blood Cells 0.0 0.0-0.19 % Differential Comment MANUAL DIFFERENTIAL Reactive Lymphocytes 2 H 0-0 % White Cell Morphology Comment REACTIVE LYMPHS 1+ Platelet Morphology Comment DECREASED Red Blood Cell Morphology See comments Chemistry Labs: Test 01/08/24 04:16 01/07/24 07:09 Range/Units Sodium Level 141 136-145 mmol/L Potassium Level 3.7 3.5-5.1 mmol/L Chloride Level 104 101-111 mmol/L Carbon Dioxide Level 28 21-32 mmol/L Blood Urea Nitrogen 44 H 7-18 mg/dL Creatinine 2.0 H 0.5-1.3 mg/dL Glomerular Filtration Rate Calc 34 >90 mL/min Random Glucose 116 H 70-105 mg/dL Total Calcium 8.3 L 8.5-10.1 mg/dL Total Bilirubin 2.0 H 0.2-1.0 mg/dL Aspartate Amino Transf (AST/SGOT) 43 H 10-37 U/L Alanine Aminotransferase (ALT/SGPT) 19 12-78 U/L Alkaline Phosphatase 250 H 50-136 U/L Total Protein 6.9 6.0-8.3 g/dL Albumin 2.0 L 3.5-5.0 g/dL ASSESSMENT: Acute on chronic renal failure Suprapubic dislodgement of the catheter s Acute on chronic urinary retention Prostate cancer Acute urinary tract infection Acute anemia Acute Thrombocytopenia Atrial fibrillation CHF Type 2 Diabetes CVA PLAN: Labs, diagnostic, radiologic exams reviewed and interpreted by myself and supervising physician. We have reviewed external records in detail Pending further Urology recommendations. Behaviors acute renal hour Obtain a UA Require close monitoring of renal function and electrolytes Order CBC, CMP, uric acid, and electrolytes in am Continue with antibiotics BiPAP as necessary, for respiratory distress Monitor blood pressure adjust medication doses as needed Avoid hypotensive episodes May use Dilaudid 0.5 mg IV every 6 hours as needed for severe pain Monitor blood sugars Strict intake, output, and daily weight should be monitored Please renally adjust medications Avoid nephrotoxic and nonsteroidal drugs Avoid contrast if possible Will continue to monitor renal function, anemia, electrolytes Treatment plan discussed with patient Questions were answered We have discussed with the other team physicians in detail about the care plan We will continue to monitor the patient closely Thank you for allowing us to participate in the care of this patient ATTESTATION BY PHYSICIAN I have seen and examined the patient. I reviewed the documentation, medical decision making, and treatment plan as noted by the mid-level provider above. I agree with the findings and plan of care. TONYA MIKE MD, [facility] Jan 08, 2024 13:16
[2024-01-08 16:00] VITALS: BP 125/56; PULSE 86; RESP 20; TEMP 97.9
[2024-01-08 20:44] VITALS: BP 122/80; PULSE 120; RESP 19; TEMP 98.2
[2024-01-08] MEDS: queTIAPine fuMARate 25 MG TAB PO SCH (20:47)
[2024-01-09] VITALS (8 sets, daily range): BP systolic 100–126; BP diastolic 55–69; PULSE 53–120; RESP 18–22; TEMP 97.6–98.7; O2SAT 95–97
[2024-01-09 03:30] LABS: BASOPHILS # (AUTO) 0.02 K/uL (0.00-0.20); BASOPHILS % (AUTO) 0.7 % (0.0-5.0); EOSINOPHILS # (AUTO) 0.21 K/uL (0.00-0.70); EOSINOPHILS % (AUTO) 6.9 % (0.0-8.0); HEMATOCRIT 27.8 % (42-54); IMMATURE GRANULOCYTE ABSOLUTE 0.01 K/uL (0-1); LYMPHOCYTES # (AUTO) 0.5 K/uL (1.0-4.8); LYMPHOCYTES % (AUTO) 15.1 % (21.0-51.0); MEAN CORPUSCULAR HEMOGLOBIN 35.3 pg (27.0-33.0); MEAN CORPUSCULAR VOLUME 110.3 fL (79-99); MONOCYTES # (AUTO) 0.3 K/uL (0.1-1.0); MONOCYTES % (AUTO) 9.5 % (3.0-13.0); NEUTROPHILS # (AUTO) 2.1 K/uL (1.8-7.7); NEUTROPHILS % (AUTO) 67.5 % (40.0-77.0); PLATELET COUNT (AUTO) 54 K/uL (130-400); RED BLOOD CELL COUNT(AUTO) 2.52 MIL/uL (4.50-6.20); RED CELL DISTRIBUTION WIDTH 19.5 % (11.0-15.5); WHITE BLOOD COUNT (AUTO) 3.1 K/uL (4.8-10.8)
[2024-01-09 04:01] LABS: % IRON SATURATION 52.6 % (30-44); IRON, SERUM 70 mcg/dL (65-175); TOTAL IRON BINDING CAPACITY 133 mcg/dL (250-450)
[2024-01-09 04:10] LABS: ALANINE AMINOTRANSFERASE 19 U/L (12-78); ALBUMIN 1.6 g/dL (3.5-5.0); ASPARTATE AMINOTRANSFERASE 41 U/L (10-37); BILIRUBIN,TOTAL 1.4 mg/dL (0.2-1.0); CARBON DIOXIDE 33 mmol/L (21-32); CHLORIDE 104 mmol/L (101-111); CREATININE 2.1 mg/dL (0.5-1.3); GLOMERULAR FILTR. RATE CALC 32 mL/min (>90); GLUCOSE,RANDOM 93 mg/dL (70-105); PHOSPHORUS 4.4 mg/dL (2.5-4.9); POTASSIUM 3.7 mmol/L (3.5-5.1); SODIUM SERUM 140 mmol/L (136-145); TOTAL PROTEIN, SERUM 6.2 g/dL (6.0-8.3); UREA NITROGEN, BLOOD 41 mg/dL (7-18); URIC ACID 9.5 mg/dL (2.6-7.2)
--- NOTE | 2024-01-09 08:59 | PN ---
[facility] PROGRESS NOTE Date of Service: Jan 09, 2024 Time of Service: 08:58 SUBJECTIVE: The patient is a 73-year-old chronically ill looking male a resident of [facility] with past medical history of hepatocellular carcinoma status post chemoembolization on chemotherapy, hypertension, hyperlipidemia, diabetes, CVA, gout, prostate cancer with chronic suprapubic catheter use, artificial urinary sphincter, coronary artery disease, atrial fibrillation and CHF who was brought to ER by EMS due to suprapubic catheter was pulled out approximately around 11:00 PM yesterday .Reportedly patient was uncomfortable and had a urinary retention. An attempt to insert a new suprapubic cath per ER MD was unsuccessful. The patient had urge to void urine at midnight and had a successful episode of passing urine on his own at bedside. He had multiple hospitalizations last month at this facility for Acute metabolic encephalopathy and Septic shock . The patient denies fever, chills ,abdominal pain ,chest pain, palpitation and shortness of breath. The patient was forgetful on presentation however, per family this is his baseline. On presentations, his vitals were stable. Labs showed Hemoglobin 8.3, hematocrit 25.9 platelet count 49, BUN 40, creatinine 1.7, GFR 42, total calcium 8.3. Urinalysis appeared dark brown, positive for large occult blood, leucocyte esterase 250, RBCs too numerous to count. The patient will be admitted on the medical surgical floor for the management of Complicated UTI. 01/05/24: The patient was examined today in ED3. He is alert, oriented to time, place and person at the moment. He denies any c/o chest pain, dizziness, burning micturition or abdominal discomfort. Urine culture was sent, he will be started on soft diet. Urologist consult was made to evaluate if the patient needed reinsertion of suprapubic catheter, recommendations are pending. The patient is pending bed on Medical Surgical floor. Further assessment and plan as discussed below. 01/06/24: The patient was examined today at bedside. He is drowsy, sleepy, and slightly confused, on 1 L of nasal cannula. His is at bedside, he denies any complaints of chest pain, dizziness, or any abdominal discomfort. Urine culture showed CFU [id number], gram positive cocci in clusters. Sensitivities pending. He is still pending suprapubic catheter placement by IR most likely today. The patient has been voiding on his own until now. The decision of the patient needing suprapubic catheter placement will be made by the urologist. Follow up with the recommendations. He has PEG tube in placed due to not able to have enough appetite to consume food through mouth. Blind Installer consult was made, recommendations are mentioned under notes. He also has staplers on abdomen from previous surgery and wound on buttocks, wound consult was made yesterday, follow up with the recommendations when available. Labs: Hemoglobin 8.8, platelets 56, BUN 40, creatinine 1.8, GFR 39, total bilirubin 2.6, albumin 1.7, AST 41, alkaline phosphatase 230, PT 12.7 (9.6- 11.6), INR 1.19 (0.85-1.15) For the assessment and plan discussed below. 01/08/2024 patient is seen and examined with attending. Displaced suprapubic catheter. Multiple unsuccessful attempts were made to recanalized the suprapubic tract, dislodged per patient gastrostomy tube. Given to unsuccessful suprapubic placement we will get a bladder scan to make sure patient has no residual. Calorie count x3 days. Waiting for Urology for orders to remove shubham. Primary nurse reports no events overnight. 01/09/24 patient is seen and examined with attending Dr. Vernon patient charge wa s reviewed. Patient is fully awake alert oriented x3 no fevers. Patient is voiding adequately; bladder scan was negative for residual patient continues; open wound from previous suprapubic catheter waiting for wound care recommendation. pending Urologist for removal of staple per Dr Locke. Director of the floor reach out to Urology. Case management [place] [facility] . REVIEW OF SYSTEMS CONSTITUTIONAL: Denies fevers, chills, or night sweats. No unintentional weight loss reported. NEUROLOGICAL: Denies headache, amaurosis fugax, motor weakness, sensory deficit, vertigo/spinning sensation, gait abnormalities, or tremors. ENT: No hearing loss, otalgia, otorrhea, rhinitis, rhinorrhea, hoarseness, or sore throat. CARDIOVASCULAR: Denies any exertional angina, dyspnea on exertion, orthopnea, paroxysmal nocturnal dyspnea, palpitations, life-threatening arrhythmias, claudication. PULMONARY: Denies any shortness of breath, cough, phlegm/sputum, hemoptysis, pleuritic chest pain. SLEEP: Denies morning headaches, daytime somnolence or napping. Denies difficulty falling asleep, staying asleep, waking from sleep. Denies knowledge of snoring. GASTROINTESTINAL: Denies any type of dysphagia to either liquids or solids. Denies nausea, vomiting, pyrosis, early satiety, abdominal pain, diarrhea, constipation, or changes in stool consistency or caliber. Denies coffee-ground emesis, hematemesis, hematochezia, or melanotic stools. GENITOURINARY: Denies frequency, urgency, nocturia, hematuria or incontinence (Storage/Irritative symptoms.) Low urinary stream, straining to void, urinary intermittency or hesitancy, splitting of the voiding stream, terminal dribbling. ENDOCRINOLOGIC: Denies polyuria, polydipsia, polyphagia or heat/cold intolerances. HEMATOLOGIC: Denies thrombophilia/previous clots, or coagulopathy/bleeding disorders. ONCOLOGIC: Denies personal history of malignancy. DERMATOLOGIC: Denies rashes or pruritus. PSYCHIATRIC: Denies any suicidal or homicidal ideation. Denies hallucinations. PHYSICAL EXAM GENERAL APPEARANCE: The patient is awake, alert, and oriented, in no acute cardiopulmonary distress. NEUROLOGICAL: Cranial nerves II-XII grossly intact. Motor is 5/5 in bilateral upper and lower extremities proximal to distal. No sensory deficits. HEENT: Face is symmetric. Pupils are equal and reactive. Extraocular movements are intact. NECK: Supple. No JVD. No thyromegaly. No submental, submandibular, pre- /postauricular, occipital or supraclavicular lymphadenopathy. CHEST: Normal chest expansion. No Telemetry. LUNGS: Absence of any rales, rhonchi or any wheezing. CARDIOVASCULAR: Regular. S1 and S2 normal. No appreciable rubs, murmurs or gallops. ABDOMEN: soft, non-tender, non-distended, normal bowel sounds, no guarding or rebound. Obese abdomen with multiple healed scars in the midabdomen area. Horizontal incision with multiple shubham in the suprapubic area with small amount of purulent drainage from the stoma noted. There was an area which a ppeared to be dehiscing and some of the shubham came loose. : Deferred. No [place]. EXTREMITIES: 2+ edema to bilateral lower extremities SKIN: No skin breakdown. Vital Signs (last 8hr) Date Time Temp Pulse Resp B/P (MAP) Pulse Ox O2 Delivery O2 Flow Rate FiO2 01/09/24 07:54 97.5 118 19 117/61 95 Room Air 01/09/24 04:04 98.8 120 18 106/61 95 Room Air LABS: Laboratory: Test 01/09/24 03:17 01/08/24 04:16 Range/Units White Blood Count 3.1 L 4.8-10.8 K/uL Red Blood Count 2.52 L 4.50-6.20 MIL/uL Hemoglobin 8.9 L 14.0-18.0 g/dL Hematocrit 27.8 L 42-54 % Mean Corpuscular Volume 110.3 H 79-99 fL Mean Corpuscular Hemoglobin 35.3 H 27.0-33.0 pg Mean Corpuscular Hemoglobin Concent 32.0 32.0-36.0 g/dL Red Cell Distribution Width 19.5 H 11.0-15.5 % Platelet Count 54 L 130-400 K/uL Mean Platelet Volume 11.2 H 7.5-10.5 fL Immature Granulocyte % (Auto) 0.3 0-1 % Neutrophils (%) (Auto) 67.5 40.0-77.0 % Lymphocytes (%) (Auto) 15.1 L 21.0-51.0 % Monocytes (%) (Auto) 9.5 3.0-13.0 % Eosinophils (%) (Auto) 6.9 0.0-8.0 % Basophils (%) (Auto) 0.7 0.0-5.0 % Neutrophils # (Auto) 2.1 1.8-7.7 K/uL Lymphocytes # (Auto) 0.5 L 1.0-4.8 K/uL Monocytes # (Auto) 0.3 0.1-1.0 K/uL Eosinophils # (Auto) 0.21 0.00-0.70 K/uL Basophils # (Auto) 0.02 0.00-0.20 K/uL Absolute Immature Granulocyte (auto 0.01 0-1 K/uL Nucleated Red Blood Cells 0.0 0.0-0.19 % Reticulocyte Count (auto) 4.70402 H 0.42-2.23 % Immature Reticulocyte Fraction 18.40 H 0.18-0.48 % Sodium Level 140 136-145 mmol/L Potassium Level 3.7 3.5-5.1 mmol/L Chloride Level 104 101-111 mmol/L Carbon Dioxide Level 33 H 21-32 mmol/L Blood Urea Nitrogen 41 H 7-18 mg/dL Creatinine 2.1 H 0.5-1.3 mg/dL Glomerular Filtration Rate Calc 32 >90 mL/min Random Glucose 93 70-105 mg/dL Uric Acid 9.5 H 2.6-7.2 mg/dL Total Calcium 8.1 L 8.5-10.1 mg/dL Phosphorus Level 4.4 2.5-4.9 mg/dL Magnesium Level 1.80 1.80-2.40 mg/dL Iron Level 70 65-175 mcg/dL Total Iron Binding Capacity 133 L 250-450 mcg/dL Percent Iron Saturation 52.6 H 30-44 % Ferritin 467 H 30-400 ng/mL Total Bilirubin 1.4 H 0.2-1.0 mg/dL Aspartate Amino Transf (AST/SGOT) 41 H 10-37 U/L Alanine Aminotransferase (ALT/SGPT) 19 12-78 U/L Alkaline Phosphatase 212 H 50-136 U/L Total Protein 6.2 6.0-8.3 g/dL Albumin 1.6 L 3.5-5.0 g/dL Vitamin B12 Level 2715 H 193-986 pg/mL Folic Acid (LAB) > 20.00 H 2-20 ng/mL Segmented Neutrophils % 71 H 40-70 % Band Neutrophils % 8 H 0-2 % Lymphocytes % (Manual) 12 L 22-44 % Monocytes % (Manual) 7 2-9 % Differential Comment MANUAL DIFFERENTIAL Reactive Lymphocytes 2 H 0-0 % White Cell Morphology Comment REACTIVE LYMPHS 1+ Platelet Morphology Comment DECREASED Red Blood Cell Morphology See comments Current Medications Medications (Trade) Dose Ordered Sig/Luis Armando Route PRN Reason Start Time Stop Time Status Last Admin Dose Admin Acetaminophen (TYLenol 325MG TAB) 650 mg Q4H PRN PO MILD PAIN (1-3) 01/05/24 04:00 02/04/24 03:59 Acetaminophen (TYLenol 325MG TAB) 650 mg Q6H PRN PO TEMPERATURE GREATER THAN 101.5 01/05/24 04:00 02/04/24 03:59 Ceftriaxone Sodium 1 gm/ Sodium Chloride 50 ml @ 100 mls/hr BID IV 01/05/24 09:00 01/05/24 04:00 DC Diltiazem HCl (CARDIzem 60MG TAB) 30 mg DAILY PEG 01/05/24 10:30 02/04/24 10:29 01/09/24 08:18 30 MG Diltiazem HCl (CARDIzem 60MG TAB) 30 mg DAILY PEG 01/06/24 09:00 01/05/24 14:57 DC Famotidine (Pepcid 20mg Vial) 20 mg DAILY IV 01/05/24 09:00 02/04/24 08:59 01/09/24 08:17 20 MG Lactulose (Constulose 20gm/ 30ml Udcup) 20 gm BID PRN PO CONSTIPATION 01/05/24 17:00 02/04/24 16:59 Levofloxacin/ Dextrose (LEvaquIN 750 MG/ D5W 150 ML) 750 mg Q48H IV 01/05/24 09:00 01/15/24 08:59 01/09/24 08:22 750 MG Metoprolol Tartrate (loprESSOR) 25 mg BID PEG 01/05/24 10:30 02/04/24 10:29 01/09/24 08:18 25 MG Metoprolol Tartrate (loprESSOR) 25 mg BID PEG 01/05/24 21:00 01/05/24 14:58 DC Ondansetron HCl (zoFRAN 4MG INJ) 4 mg Q6H PRN IV NAUSEA/VOMITING 01/05/24 04:00 02/04/24 03:59 Quetiapine Fumarate (SEROquel 25 mg TAB) 25 mg HS PO 01/08/24 21:00 02/07/24 20:59 01/08/24 20:47 25 MG Quetiapine Fumarate (SEROquel 25 mg TAB) 25 mg ONCE PO 01/07/24 16:30 01/07/24 21:30 DC 01/07/24 16:41 25 MG Quetiapine Fumarate (SEROquel 25 mg TAB) 25 mg Q6H PO 01/07/24 16:30 01/08/24 14:06 DC 01/08/24 11:32 25 MG Sertraline HCl (ZOloft 50 mg tab) 25 mg DAILY PEG 01/08/24 09:00 02/07/24 08:59 01/09/24 08:18 25 MG DIAGNOSTICS / RADIOLOGY: [ ] ASSESSMENT: Suprapubic dislodgement of the catheter POA unsuccessful attempts Acute on chronic urinary retention POA resolved UOP adequately bladder scan no sign of residual Open wound previous suprapubic site: POA Prostate cancer POA Acute urinary tract infection POA Acute anemia POA Acute Thrombocytopenia POA Stage 3 renal disease POA MARBELLA on Chronic renal disease POA Atrial fibrillation POA CHF POA Type 2 Diabetes POA CVA POA Altered mental status with behavioral disturbance POA Pressure ulcers Allergy to Clindamycin, Ceftriaxone, doxycycline, Vancomycin Dislodged per patient gastrostomy tube not POA Hematuria resolved Severe protein calorie malnutrition PLAN: The patient remains admitted on medical surgical floor. Suprapubic dislodgement of the catheter POA Acute on chronic urinary retention POA * UOP adequate * Multiple attempts to reinsert the suprapubic catheter were not successful Bladder scan no residual - open wound from suprapubic site ; wound care to eval and recommendations. - Staple pending removal waiting for Urologist for orders to removed. Acute urinary tract infection POA * Continue with Levofloxacin 750 mg IV Q48. Urine culture showed CFU [id number], gram-positive cocci in the clusters, sensitivities pending. Follow up on the results are available. * The patient is Allergic to Clindamycin, Ceftriaxone, doxycycline, Vancomycin Atrial fibrillation POA * Hold on Eliquis 2.5 MG today given hematuria. * Continue with Diltiazem 60 MG PO daily. Pressure ulcers Old suprapubic site: open wound Wound care consult is pending, follow up when the recommendations are available. * Replace electrolytes as needed per protocol * Continue on heart healthy diet * Continue with Metoprolol 25 MG, Hold Furosemide 25 MG today since the BP is on softer side. Hold BP medication until the blood pressure is on the softer side. * Continue on famotidine 20 mg p.o. bid for GI prophylaxis * on insulin sliding scale AC & HS with hypoglycemia protocol * Keep the wound site dry and clear. * PRN medication for fever,pain,nausea and vomiting Acute thrombocytopenia we will consult Hematology We will monitor for bleeding, anemia workup and flow cytometry will follow up oncologist upon discharged MARBELLA: creatinine 2.0 following Instructional Technology Teacher consulted: severe protein calorie malnutrition Calorie count; x3 days continue with Seroquel 12.5 at bedtime only AM Labs: CBC, CMP c/d with Attending : Dr Vernon agreed with care of plan above. ATTESTATION BY PHYSICIAN I have seen and examined the patient. I reviewed the documentation, medical decision making, and treatment plan as noted by the mid-level provider above. I agree with the findings and plan of care. PATRICK VERNON MD, ELIZABETH NP Jan 09, 2024 08:59
--- NOTE | 2024-01-09 11:56 | NUR ---
Discharge Planning: Patient was transferred form [facility] and has 10 day to return without sending new referral from the start. Updated clinicals faxed to [facility].
--- NOTE | 2024-01-09 13:39 | PN ---
NEPHROLOGY PROGRESS NOTE Date/Time Patient Seen: Jan 09, 2024 Reason for Consultation: 13:38 SUBJECTIVE: This is a 73-year-old male with a past medical history of hepatocellular carcinoma S/p chemoembolization and chemotherapy, hyperlipidemia, history of CVA, gout, prostate cancer, artificial urinary sphincter, suprapubic catheter, coronary artery disease, atrial fibrillation anticoagulation with Eliquis, hypertension, diabetes mellitus type 2, anemia. He presented to the emergency room from [facility] via EMS due to dis lodgement of suprapubic catheter. Pending further Urology recommendations. He was noted with elevated BUN/creatinine. We are consulted for renal failure. Renal function is stable Electrolytes are stable. Patient is tolerating diet well. Nurse reports he is voiding. Was seen in the medical floor, in no acute distress Prognosis remains guarded REVIEW OF SYSTEMS: GENERAL: Positive for generalized weakness and suprapubic catheter dislodgement NEUROLOGIC: Negative for any blurry vision, blind spots, double vision, facial asymmetry, dysphagia, dysarthria, hemiparesis, hemisensory deficits, vertigo, ataxia. HEENT: Negative for any head trauma, neck trauma, neck stiffness, photophobia, phonophobia, sinusitis, rhinitis. CARDIAC: Negative for any chest pain, dyspnea on exertion, paroxysmal nocturnal dyspnea, peripheral edema. PULMONARY: Negative for any shortness of breath, wheezing, COPD, or TB exposure. GASTROINTESTINAL: Negative for any abdominal pain, nausea, vomiting, bright red blood per rectum, melena. GENITOURINARY: Negative for any dysuria, hematuria, incontinence. INTEGUMENTARY: Negative for any rashes, cuts, insect bites. RHEUMATOLOGIC: Negative for any joint pains, photosensitive rashes, history of vasculitis or kidney problems. HEMATOLOGIC: Negative for any abnormal bruising, frequent infections or bleeding. PHYSICAL EXAM: GENERAL: Alert and oriented x 3. No acute distress. Well-nourished. EYES: EOMI. Anicteric. HENT: Moist mucous membranes. No scleral icterus. No cervical lymphadenopathy. LUNGS: Clear to auscultation bilaterally. No accessory muscle use. CARDIOVASCULAR: Regular rate and rhythm. No murmur. No JVD. ABDOMEN: Soft, non-tender and non-distended. No palpable masses. EXTREMITIES: No edema. Non-tender. SKIN: No rashes or lesions. Warm. NEUROLOGIC: No focal neurological deficits. CN II-XII grossly intact, but not individually tested. PSYCHIATRIC: Cooperative. Appropriate mood and affect. LABORATORY: [ ] Hematology Labs: Test 01/09/24 03:17 01/08/24 04:16 Range/Units White Blood Count 3.1 L 4.8-10.8 K/uL Red Blood Count 2.52 L 4.50-6.20 MIL/uL Hemoglobin 8.9 L 14.0-18.0 g/dL Hematocrit 27.8 L 42-54 % Mean Corpuscular Volume 110.3 H 79-99 fL Mean Corpuscular Hemoglobin 35.3 H 27.0-33.0 pg Mean Corpuscular Hemoglobin Concent 32.0 32.0-36.0 g/dL Red Cell Distribution Width 19.5 H 11.0-15.5 % Platelet Count 54 L 130-400 K/uL Mean Platelet Volume 11.2 H 7.5-10.5 fL Immature Granulocyte % (Auto) 0.3 0-1 % Neutrophils (%) (Auto) 67.5 40.0-77.0 % Lymphocytes (%) (Auto) 15.1 L 21.0-51.0 % Monocytes (%) (Auto) 9.5 3.0-13.0 % Eosinophils (%) (Auto) 6.9 0.0-8.0 % Basophils (%) (Auto) 0.7 0.0-5.0 % Neutrophils # (Auto) 2.1 1.8-7.7 K/uL Lymphocytes # (Auto) 0.5 L 1.0-4.8 K/uL Monocytes # (Auto) 0.3 0.1-1.0 K/uL Eosinophils # (Auto) 0.21 0.00-0.70 K/uL Basophils # (Auto) 0.02 0.00-0.20 K/uL Absolute Immature Granulocyte (auto 0.01 0-1 K/uL Nucleated Red Blood Cells 0.0 0.0-0.19 % Reticulocyte Count (auto) 4.50398 H 0.42-2.23 % Immature Reticulocyte Fraction 18.40 H 0.18-0.48 % Segmented Neutrophils % 71 H 40-70 % Band Neutrophils % 8 H 0-2 % Lymphocytes % (Manual) 12 L 22-44 % Monocytes % (Manual) 7 2-9 % Differential Comment MANUAL DIFFERENTIAL Reactive Lymphocytes 2 H 0-0 % White Cell Morphology Comment REACTIVE LYMPHS 1+ Platelet Morphology Comment DECREASED Red Blood Cell Morphology See comments Chemistry Labs: Test 01/09/24 03:17 Range/Units Sodium Level 140 136-145 mmol/L Potassium Level 3.7 3.5-5.1 mmol/L Chloride Level 104 101-111 mmol/L Carbon Dioxide Level 33 H 21-32 mmol/L Blood Urea Nitrogen 41 H 7-18 mg/dL Creatinine 2.1 H 0.5-1.3 mg/dL Glomerular Filtration Rate Calc 32 >90 mL/min Random Glucose 93 70-105 mg/dL Uric Acid 9.5 H 2.6-7.2 mg/dL Total Calcium 8.1 L 8.5-10.1 mg/dL Phosphorus Level 4.4 2.5-4.9 mg/dL Magnesium Level 1.80 1.80-2.40 mg/dL Iron Level 70 65-175 mcg/dL Total Iron Binding Capacity 133 L 250-450 mcg/dL Percent Iron Saturation 52.6 H 30-44 % Ferritin 467 H 30-400 ng/mL Total Bilirubin 1.4 H 0.2-1.0 mg/dL Aspartate Amino Transf (AST/SGOT) 41 H 10-37 U/L Alanine Aminotransferase (ALT/SGPT) 19 12-78 U/L Alkaline Phosphatase 212 H 50-136 U/L Total Protein 6.2 6.0-8.3 g/dL Albumin 1.6 L 3.5-5.0 g/dL Vitamin B12 Level 2715 H 193-986 pg/mL Folic Acid (LAB) > 20.00 H 2-20 ng/mL DIAGNOSTICS / RADIOLOGY: REASON: URINARY RETENTION ORDERING PHYSICIAN: MARLA SKY MD PROCEDURE: ABD PEL WO - CT ABDOMEN/PELVIS W/O CONTRAST CT ABDOMEN WITHOUT CONTRAST. CT PELVIS WITHOUT CONTRAST. INDICATION: Urinary retention TECHNIQUE: Routine transaxial imaging using 5 mm slice thickness through the abdomen and pelvis without the administration of IV contrast. Thin slice reconstructions are also provided. Coronal and sagittal reformatted images acquired for interpretation. CT was performed with one or more of the following dose reduction techniques: Automated exposure control, adjustment of the mA and/or kV according to patient size, or use of iterative reconstruction technique. COMPARISON: 12/21/2023 FINDINGS: ON NONCONTRAST IMAGING: ABDOMEN: Heart size is normal. Small to medium-sized left and trace right pleural effusions with subjacent passive opacities. Gastrostomy tube is in place. No abnormal renal calcifications, hydronephrosis, perinephric inflammation, or proximal hydroureter detected. Small simple left renal cyst. The liver is decreased in size and nodular in contour without biliary duct dilation. Superolateral right hepatic lobe hemorrhagic mass. A couple of additional subcentimeter simple cysts within the posterior right hepatic lobe with Hounsfield units corresponding to water attenuation. Spleen remains enlarged. The gallbladder is absent. The pancreas appears normal without pancreatic duct dilation. The adrenal glands appear normal. No significant abdominal, retrocrural or retroperitoneal adenopathy noted. No evidence for intra-abdominal free air or organized fluid collection. Small amount of free fluid scattered throughout the abdomen and pelvis. Mild calcific plaque is noted along the abdominal aortic and iliac vessel bernal without aneurysmal dilation. PELVIS: Penile pump hardware noted. No abnormal calcifications within the urinary bladder or distal ureters. No evidence for free air or organized pelvic fluid collection. No significant pelvic adenopathy detected. Visualized small and large bowel loops appear unremarkable. Terminal ileum appears unremarkable. The appendix is not well-visualized. Visible osseous structures are intact. IMPRESSION: 1. Cirrhotic liver with superimposed now hemorrhagic superolateral right hepatic lobe tumor. 2. Splenomegaly. 3. Small-volume abdominopelvic ascites. 4. Small to medium-sized left and trace right pleural effusions with subjacent passive atelectasis. 5.5 cm DICTATED BY: JOSEPH VALIENTE MD DATE: 01/07/24 1057 ASSESSMENT: Acute on chronic renal failure Suprapubic dislodgement of the catheter s Acute on chronic urinary retention Prostate cancer Acute urinary tract infection Acute anemia Acute Thrombocytopenia Atrial fibrillation CHF Type 2 Diabetes CVA PLAN: Labs, diagnostic, radiologic exams reviewed and interpreted by myself and supervising physician. We have reviewed external records in detail Pending further Urology consult Require close monitoring of renal function and electrolytes Order CBC, CMP, and electrolytes in am Continue with antibiotics BiPAP as necessary, for respiratory distress Monitor blood pressure adjust medication doses as needed Avoid hypotensive episodes May use Dilaudid 0.5 mg IV every 6 hours as needed for severe pain Monitor blood sugars Strict intake, output, and daily weight should be monitored Please renally adjust medications Avoid nephrotoxic and nonsteroidal drugs Avoid contrast if possible Will continue to monitor renal function, anemia, electrolytes Treatment plan discussed with patient Questions were answered We have discussed with the other team physicians in detail about the care plan We will continue to monitor the patient closely ATTESTATION BY PHYSICIAN I have seen and examined the patient. I reviewed the documentation, medical decision making, and treatment plan as noted by the mid-level provider above. I agree with the findings and plan of care. TONYA MIKE MD, [facility] Jan 09, 2024 13:39
--- NOTE | 2024-01-09 13:54 | PN ---
This is a 73-year-old male with multiple medical problems, who had a suprapubic catheter in place that got dislodged. It was not possible to place it back and that is why the patient has been admitted. Also, he has been found to have a UTI, for which he is receiving IV antibiotic. At this time, the patient is feeling okay. He has no complaints. Patient receiving chemotherapy treatment for liver cancer by Dr. Pearce with Tecentriq and Avastin PHYSICAL EXAMINATION: VITAL SIGNS: Temperature 97.9, heart rate 109, respiratory rate 20, blood pressure 116/66. GENERAL: The patient is in no acute distress. HEENT: Oral examination normal. LUNGS: Clear to auscultation bilaterally. HEART: Regular rate. No murmurs. ABDOMEN: Bowel sounds positive. Soft, nontender. No masses. EXTREMITIES: No edema, no palpable lymph nodes. IMPRESSION: 1. thrombocytopenia 2. Anemia 3. Neutropenia 4. Acute on chronic renal failure 4. Hepatic cell carcinoma. patient is receiving Tecentriq and Avastin 6. Cirrhosis of the liver 7. Status post suprapubic catheter which was removed 8. Congestive heart failure 9. Diabetes mellitus Plan 1. Will hold all chemotherapy treatment for this patient at this time. 2. Platelet count improved significantly most likely due to sepsis 3. This patient to be seen by urology for plan of removal of the shubham 4. No need for blood product transfusion 5. I will ask Dr. Rojo to see this patient starting tomorrow Vitals/Labs Vital Signs Date Time Temp Pulse Resp B/P (MAP) Pulse Ox O2 Delivery O2 Flow Rate FiO2 01/09/24 11:35 98.1 80 19 100/61 95 Room Air 01/09/24 08:00 0 21 Laboratory Tests 01/09/24 03:17 Medications Current Medications Acetaminophen 650 mg Q6H PRN PO; Start 01/05/24 at 04:00; Stop 02/04/24 at 03:59 Acetaminophen 650 mg Q4H PRN PO; Start 01/05/24 at 04:00; Stop 02/04/24 at 03:59 Ondansetron HCl 4 mg Q6H PRN IV; Start 01/05/24 at 04:00; Stop 02/04/24 at 03:59 Ceftriaxone Sodium 1 gm/ Sodium Chloride 50 ml @ 100 mls/hr BID IV; Start 01/05/24 at 09:00; Stop 01/05/24 at 04:00; Status DC Famotidine 20 mg DAILY IV Last administered on 01/09/24at 08:17; Start 01/05/24 at 09:00; Stop 02/04/24 at 08:59 Levofloxacin/ Dextrose 750 mg Q48H IV Last administered on 01/09/24at 08:22; Start 01/05/24 at 09:00; Stop 01/15/24 at 08:59 Metoprolol Tartrate 25 mg BID PEG Last administered on 01/09/24at 08:18; Start 01/05/24 at 10:30; Stop 02/04/24 at 10:29 Diltiazem HCl 30 mg DAILY PEG Last administered on 01/09/24at 08:18; Start 01/05/24 at 10:30; Stop 02/04/24 at 10:29 Diltiazem HCl 30 mg DAILY PEG; Start 01/06/24 at 09:00; Stop 01/05/24 at 14:57; Status DC Metoprolol Tartrate 25 mg BID PEG; Start 01/05/24 at 21:00; Stop 01/05/24 at 14:58; Status DC Lactulose 20 gm BID PRN PO; Start 01/05/24 at 17:00; Stop 02/04/24 at 16:59 Alprazolam 0.5 mg ONCE ONCE PO Last administered on 01/05/24at 23:29; Start 01/05/24 at 23:30; Stop 01/05/24 at 23:31; Status DC Diphenhydramine HCl 25 mg ONCE ONCE IV; Start 01/06/24 at 09:30; Stop 01/06/24 at 09:31; Status DC Metoprolol Tartrate 25 mg ONCE ONCE PO; Start 01/06/24 at 12:00; Stop 01/06/24 at 12:01; Status DC Iohexol 50 ml STK-MED ONCE IV; Start 01/06/24 at 16:13; Stop 01/06/24 at 16:14; Status DC Heparin Sodium/ Sodium Chloride 500 ml @ As Directed STK-MED ONCE IV; Start 01/06/24 at 16:13; Stop 01/06/24 at 16:14; Status DC Lidocaine HCl 20 ml STK-MED ONCE .ROUTE; Start 01/06/24 at 16:14; Stop 01/06/24 at 16:14; Status DC Diphenhydramine HCl 50 mg STK-MED ONCE .ROUTE; Start 01/06/24 at 16:40; Stop 01/06/24 at 16:40; Status DC Methylprednisolone Sodium Succinate 125 mg STK-MED ONCE .ROUTE; Start 01/06/24 at 16:40; Stop 01/06/24 at 16:40; Status DC Alprazolam 0.5 mg ONCE ONCE PO Last administered on 01/07/24at 00:21; Start 01/07/24 at 00:15; Stop 01/07/24 at 00:16; Status DC Sertraline HCl 25 mg DAILY PEG Last administered on 01/09/24at 08:18; Start 01/08/24 at 09:00; Stop 02/07/24 at 08:59 Quetiapine Fumarate 25 mg ONCE ONCE PO Last administered on 01/07/24at 14:39; Start 01/07/24 at 14:30; Stop 01/07/24 at 14:31; Status DC Quetiapine Fumarate 25 mg ONCE PO Last administered on 01/07/24at 16:41; Start 01/07/24 at 16:30; Stop 01/07/24 at 21:30; Status DC Quetiapine Fumarate 25 mg Q6H PO Last administered on 01/08/24at 11:32; Start 01/07/24 at 16:30; Stop 01/08/24 at 14:06; Status DC Quetiapine Fumarate 25 mg HS PO Last administered on 01/08/24at 20:47; Start 01/08/24 at 21:00; Stop 01/09/24 at 11:25; Status DC Allopurinol 100 mg DAILY PEG; Start 01/10/24 at 09:00; Stop 02/09/24 at 08:59 Ferrous Sulfate 325 mg DAILY PEG; Start 01/10/24 at 09:00; Stop 02/09/24 at 08:59 Quetiapine Fumarate 12.5 mg HS PO; Start 01/09/24 at 21:00; Stop 02/08/24 at 20:59 KATHARINE TAN MD Jan 09, 2024 13:54
--- NOTE | 2024-01-09 14:34 | NUR ---
RECEIVED CALL FROM DR. SKY CLINIC DR. SKY NURSE TOOK CONSULT, SAID SHE WILL GIVE THE MESSAGE TO DR. SKY. GAVE HER THE CALL BACK NUMBER [phone], PENDING TO SPEAK WITH DR. SKY.
--- NOTE | 2024-01-09 15:10 | NUR ---
POST VOID SCAN POST VOID SCAN 43ML OF URINE FOUND VIA BLADDER SCAN DONE AFTER PATIENT VOIDING 10 MINS AGO.
--- NOTE | 2024-01-09 16:30 | NUR ---
[facility] Consult: Patient assessed by wound healing team. See wound assessment. Assessment and recommendations provided to primary nurse. Education provided. Addendum: 01/10/24 at 1558 by KATARINA MENDEZ RN RN/ Amended: Links added.
--- NOTE | 2024-01-09 16:49 | NUR ---
AJITH, DR. SKY NURSE CALLED 1510: SPOKE TO AJITH, GAVE HER THE POST BLADDER READING OF 45ML, WAS TOLD SHE WILL CALL BACK WITH FURTHER ORDERS. 1649: NO CALL BACK, SPOKE TO PRIZE COORDINATOR, STATED AJITH WAS IN A PATIENTS ROON AND WILL RETURN THE FOLLOW UP CALL WHEN SHE GETS OUT.
--- NOTE | 2024-01-09 17:49 | NUR ---
CALL BACK FROM AJITH NURSE WITH DR. JOSE DANIEL CANSECO STATED "DR. SKY GAVE ORDERS TO A DOCTOR TAKING CARE OF THE PATIENT TO REMOVE THE JOELLEN" I ASKED WHO, SHE STATED SHE DOESN'T KNOW WHICH DOCTOR HE SPOKE TO AND WAS UNABLE TO VERIFY THE NAME OF THE MD THAT THE ORDERS WERE GIVEN TOO. I ASKED " CAN I PUT IN THOSE ORDERS SINCE THEY ARE NOT ON MY SIDE" SHE SAID "NO DO NOT PUT IN ANY ORDERS, THEY WERE ALREADY GIVEN TO A DOCTOR". NOTIFIED CHARGE-MUKUL AND SVETA-SAMANTHA. THERE CURRENTLY ARE NO NEW ORDERS AT THIS TIME.
[2024-01-09] MEDS: queTIAPine fuMARate 25 MG TAB PO SCH (20:53)
--- NOTE | 2024-01-09 20:55 | NUR ---
MEDS SHIFT ASSESSMENT DONE, PLEASE REFER TO CHART. PT'S HR=53, HELD METOPROLOL DOSE AT THIS TIME. DUE MEDS ADMINISTERED, TOLERATED WELL. KEPT RESTED AND COMFORTABLE IN BED. CALL LIGHT WITHIN REACH. BED ALARM ACTIVATED. FAMILY AT BEDSIDE.
[2024-01-10] VITALS: BP 127/50; PULSE 105; RESP 20; TEMP 97.8
--- NOTE | 2024-01-10 03:35 | NUR ---
LAB TRIED TO DRAW BLOOD FROM PORT-A-CATH, FLUSHES WELL BUT NO BLOOD RETURN. COLLECTED URINE SPECIMEN FOR LAB AND SENT. CHANGED PT'S DIAPER AND RE-POSITIONED COMFORTABLY IN BED WITH HOB ELEVATED. CALL LIGHT WITHIN REACH.
[2024-01-10 04:00] VITALS: BP 113/65; PULSE 89; RESP 20; TEMP 97.5
[2024-01-10 04:02] LABS: APPEARANCE,URINE CLEAR (CLEAR); BILIRUBIN,URINE NEGATIVE (NEGATIVE); COLOR,URINE YELLOW (YELLOW); GLUCOSE, URINE (UA) NEGATIVE (NEGATIVE); KETONES,URINE NEGATIVE (NEGATIVE); LEUKOCYTE ESTERASE ,URINE 250 Leu/uL (NEGATIVE); NITRATE,URINE NEGATIVE (NEGATIVE); OCCULT BLOOD,URINE MODERATE (NEGATIVE); PH,URINE 5.5 (5.0-8.0); PROTEIN,URINE NEGATIVE (NEGATIVE); UROBILINOGEN,URINE 0.2 mg/dL (0.2-1.0)
[2024-01-10 04:06] LABS: HEMATOCRIT 30.2 % (42-54); MEAN CORPUSCULAR HEMOGLOBIN 34.6 pg (27.0-33.0); MEAN CORPUSCULAR HGB CONC 32.1 g/dL (32.0-36.0); MEAN CORPUSCULAR VOLUME 107.9 fL (79-99); RED BLOOD CELL COUNT(AUTO) 2.8 MIL/uL (4.50-6.20); RED CELL DISTRIBUTION WIDTH 19.4 % (11.0-15.5); WHITE BLOOD COUNT (AUTO) 4.2 K/uL (4.8-10.8)
[2024-01-10 04:06] LABS: ADD UA MICROSCOPIC YES
[2024-01-10 04:10] LABS: MUCUS,URINE RARE LPF (None Seen); SQUAMOUS EPITHELIAL CELL,UR RARE /HPF (0-2); YEAST,URINE BUDDING MOD /HPF (None Seen)
[2024-01-10 04:31] LABS: ALBUMIN 1.7 g/dL (3.5-5.0); BILIRUBIN,TOTAL 1.8 mg/dL (0.2-1.0); MAGNESIUM 1.8 mg/dL (1.80-2.40); PHOSPHORUS 3.5 mg/dL (2.5-4.9); POTASSIUM 3.6 mmol/L (3.5-5.1); TOTAL PROTEIN, SERUM 6.6 g/dL (6.0-8.3)
--- NOTE | 2024-01-10 06:29 | NUR ---
ROUNDS PT SLEPT AT INTERVALS DURING THE SHIFT. STILL CONFUSED BUT NON-COMBATIVE AND VERY COOPERATIVE. KEPT COMFORTABLE IN BED. FOR MORE CARE.
[2024-01-10 08:00] VITALS: BP 133/75; PULSE 118; RESP 19; TEMP 97.5
--- NOTE | 2024-01-10 09:35 | DS ---
Discharge Summary Hospital Course Summary: The patient is a 73-year-old chronically ill looking male a resident of [facility] with past medical history of hepatocellular carcinoma status post chemoembolization on chemotherapy, hypertension, hyperlipidemia, diabetes, CVA, gout, prostate cancer with chronic suprapubic catheter use, artificial urinary sphincter, coronary artery disease, atrial fibrillation and CHF who was brought to ER by EMS due to suprapubic catheter was pulled out approximately around 11:00 PM yesterday .Reportedly patient was uncomfortable and had a urinary retention. An attempt to insert a new suprapubic cath per ER MD was unsuccessful. The patient had urge to void urine at midnight and had a successful episode of passing urine on his own at bedside. He had multiple hospitalizations last month at this facility for Acute metabolic encephalopathy and Septic shock . The patient denies fever, chills ,abdominal pain ,chest pain, palpitation and shortness of breath. The patient was forgetful on presentation however, per family this is his baseline. On presentations, his vitals were stable. Labs showed Hemoglobin 8.3, hematocrit 25.9 platelet count 49, BUN 40, creatinine 1.7, GFR 42, total calcium 8.3. Urinalysis appeared dark brown, positive for large occult blood, leucocyte esterase 250, RBCs too numerous to count. The patient will be admitted on the medical surgical floor for the management of Complicated UTI. During the course of stay patient was on IV antibiotics Levaquin 750 every 48 hours urine cultures came back Gram positiveENTEROCOCCUS FAECIUm STAPHYLOCOCCUS EPIDERMIDIS during the course patient removed gastrostomy tube patient eating well oral. Suprapubic catheter was dislodged IR multiple attempts unsuccessful urine output is adequate bladder scan postvoid residual . Urology was made aware. Okay to remove shubham. Patient's previous suprapubic site with small opening living specialist recommended Medihoney daily. Patient will continue with current home medications upon discharge. Patient is clinical stable for discharge Procedure(s): DATE OF PROCEDURE: 01/06/2024 INDICATIONS: History of displaced suprapubic catheter. DESCRIPTION OF PROCEDURE: Informed consent was obtained. Discussion of the risks, benefits and alternatives of the treatment. The area was prepped and draped in sterile fashion. Multiple unsuccessful attempts were made to inject contrast through the tract. Multiple unsuccessful attempts were made to advance the catheter and Glidewire through the existing tract. All the wires and catheters were removed and sterile dressings applied. No immediate complication. The patient tolerated the procedure well. IMPRESSION: Multiple unsuccessful attempts were made to recanalize the suprapubic tract. The patient tolerated the procedure well. RUN DATE: 01/07/24 [facility] PAGE 1 RUN TIME: [address] [address], [place] [address] Department of Laboratories CLIA # [id number] Window Glazier: Galindo Faye DO Specimen Report PATIENT: AJIT HINOJOSA ACCT: [id number] LOC: [facility] U: [id number] AGE/SX: 73/M ROOM: [facility] RE01/05/[address]: PATRICK VERNON MD : [id number] BED: 1 DIS: STATUS: ADM IN TLOC: SPEC: [id number] ELAINE: 01/05/24 STATUS: COMP REQ: [id number] RECD: 01/06/[address] [facility] [address]: LYDIA VALIENTE MD SOURCE: URINE CATH ENTR: 01/06/[address] [facility] [address]: MARLA SKY MD [facility]: CATHERIZED PATRICK VERNON MD, SERGIO A MD ORDERED: AERO ID & SENS Procedure Result Pasha Date-Time AEROBIC ID & SENSITIVITIES Final 01/07/24-620 [facility] COLONY DESCRIPTION: DAY 1: ISOLATE #1: COLONY COUNT: 20,000 - 50,000 CFU/ML GRAM POSITIVE COCCI IN CLUSTERS IDENTIFICATION AND SENSITIVITY TO FOLLOW DAY 2: COLONY COUNT: 20,000 - 50,000 CFU/ML GRAM POSITIVE COCCI IN CHAINS . IDENTIFICATION AND SENSITIVITY TO FOLLOW ENTEROCOCCUS FAECIUM STAPHYLOCOCCUS EPIDERMIDIS E FAECIUM STA EPIDER M.I.C. RX M.I.C. RX --------- ---- --------- ---- AMPICILLIN <=2 S GENTAMICIN <=4 S VANCOMYCIN <=0.5 S 1 S NITROFURANTOIN <=32 S OXACILLIN JAVY >2 R RIFAMPIN >2 R TETRACYCLINE <=4 S GENTAMICIN Synergy Screen <=500 S PENICILLIN 2 S TRIMETHOPRIM/SUFLAMETHOXAZOLE <=0.5/9.5 S ENTEROCOCCUS FAECIUM: POSITIVE COMBO 34 Gentamicin Synergy Screen S @ [facility] Test Performed at: [facility] [address], [place], [place] Medical Field Account Manager: Juan Medley D.O. END OF REPORT Assessment/Plan: discharged Dx's Suprapubic dislodgement of the catheter POA unsuccessful attempts Acute on chronic urinary retention POA resolved UOP adequately bladder scan no sign of residual Open wound previous suprapubic site: POA Prostate cancer POA Acute urinary tract infection POA Acute anemia POA Acute Thrombocytopenia POA Stage 3 renal disease POA MARBELLA on Chronic renal disease POA Atrial fibrillation POA CHF POA Type 2 Diabetes POA CVA POA Altered mental status with behavioral disturbance POA Pressure ulcers Allergy to Clindamycin, Ceftriaxone, doxycycline, Vancomycin Dislodged per patient gastrostomy tube not POA Hematuria resolved Severe protein calorie malnutrition PLAN: ADMISSION DATE: 01/05/24 DISCHARGE DATE: January 10, 2024 DISPOSITION: [facility] CONDITION: stable RN MENTAL HEALTH(S): oncologist: DR Bah, FOLLOW UP APPOINTMENT(S): PROCEDURES: Multiple unsuccessful attempts were made to recanalize the suprapubic tract. IMAGING (S) report attached to summary : MICROBIOLOGY: report attached to summary; ACTIVITY: ab good use DME: [facility] HOME MEDICATIONS remain the same CHANGES ON HOME MEDICATIONS none NEW MEDICATIONS none Home Medications: Reported Medications Guaifenesin/Dextromethorphan (Guaifenesin-Dm 200-20 mg/10 ml) 100 Mg-10 Mg/5 Ml Liquid, 10 ML PEG Q6HPRN PRN for COUGH 01/05/24 Albuterol Sulfate (Ventolin Hfa) 90 Mcg Hfa.aer.ad, 1 PUFF IH Q4HPRN PRN for wheezing for 30 Days, #18 GM 0 Refills 01/05/24 Ipratropium Loiza (Ipratropium Loiza) 0.2 Mg/Ml (0.02 %) Solution, 1 VIAL NEB D3DLOEA for 30 Days, #300 ML 0 Refills 01/05/24 Allopurinol (Allopurinol) 100 Mg Tablet, 1 TAB PEG DAILY for 30 Days, #30 TAB 0 Refills 01/05/24 Apixaban (Eliquis) 2.5 Mg Tablet, 1 TAB PEG BID for 30 Days, #60 TAB 0 Refills 01/05/24 Furosemide (Lasix 40Mg Tab) 40 Mg Tablet, 1 TAB PEG BID for 30 Days, #30 TAB 0 Refills 01/05/24 Sertraline HCl (Sertraline HCl) 25 Mg Tablet, 1 TAB PEG DAILY for 30 Days, #30 TAB 0 Refills 01/05/24 Lactulose (Lactulose) 20 Gram/30 Ml Solution, 30 ML PEG BID for constipation for 30 Days, #900 ML 0 Refills 01/05/24 Hydroxyzine HCl (Hydroxyzine HCl) 25 Mg Tablet, 2 TAB PEG TID PRN for ANXIETY/AGITATION for 30 Days, #60 TAB 0 Refills 01/05/24 Latanoprost (Latanoprost) 0.005 % Drops, 1 DROP OU HS, ML 0 Refills 01/05/24 Metoprolol Tartrate (Metoprolol Tartrate) 25 Mg Tablet, 1 TAB PEG BID for 30 Days, #60 TAB 0 Refills 01/05/24 Diltiazem HCl (Diltiazem HCl) 60 Mg Tablet, 30 MG PEG DAILY, TAB 01/05/24 Ferrous Sulfate (Ferrous Sulfate) 324 Mg (65 Mg Iron) Tablet.dr, 1 TAB PEG DAILY for 30 Days, #30 TAB 0 Refills 01/05/24 Thiamine HCl (Vitamin B-1) 50 Mg Tablet, 2 TAB PEG DAILY for 30 Days, #60 TAB 0 Refills 01/05/24 Continued Medications: Albuterol Sulfate (Ventolin Hfa) 90 Mcg Hfa.aer.ad 1 PUFF IH Q4HPRN PRN for wheezing for 30 Days, #18 GM 0 Refills Allopurinol (Allopurinol) 100 Mg Tablet 1 TAB PEG DAILY for 30 Days, #30 TAB 0 Refills Apixaban (Eliquis) 2.5 Mg Tablet 1 TAB PEG BID for 30 Days, #60 TAB 0 Refills Diltiazem HCl (Diltiazem HCl) 60 Mg Tablet 30 MG PEG DAILY, TAB Ferrous Sulfate (Ferrous Sulfate) 324 Mg (65 Mg Iron) Tablet.dr 1 TAB PEG DAILY for 30 Days, #30 TAB 0 Refills Furosemide (Lasix 40Mg Tab) 40 Mg Tablet 1 TAB PEG BID for 30 Days, #30 TAB 0 Refills Guaifenesin/Dextromethorphan (Guaifenesin-Dm 200-20 mg/10 ml) 100 Mg-10 Mg/5 Ml Liquid 10 ML PEG Q6HPRN PRN for COUGH Hydroxyzine HCl (Hydroxyzine HCl) 25 Mg Tablet 2 TAB PEG TID PRN for ANXIETY/AGITATION for 30 Days, #60 TAB 0 Refills Ipratropium Loiza (Ipratropium Loiza) 0.2 Mg/Ml (0.02 %) Solution 1 VIAL NEB [id number] for 30 Days, #300 ML 0 Refills Lactulose (Lactulose) 20 Gram/30 Ml Solution 30 ML PEG BID for constipation for 30 Days, #900 ML 0 Refills Latanoprost (Latanoprost) 0.005 % Drops 1 DROP OU HS, ML 0 Refills Metoprolol Tartrate (Metoprolol Tartrate) 25 Mg Tablet 1 TAB PEG BID for 30 Days, #60 TAB 0 Refills Sertraline HCl (Sertraline HCl) 25 Mg Tablet 1 TAB PEG DAILY for 30 Days, #30 TAB 0 Refills Thiamine HCl (Vitamin B-1) 50 Mg Tablet 2 TAB PEG DAILY for 30 Days, #60 TAB 0 Refills Time spent arranging discharge: 31-60 minutes ATTESTATION BY PHYSICIAN I have seen and examined the patient. I reviewed the documentation, medical decision making, and treatment plan as noted by the mid-level provider above. I agree with the findings and plan of care. PATRICK VERNON MD, [place] NP Jan 10, 2024 09:35
[2024-01-10 11:05] VITALS: O2SAT 100
[2024-01-10] MEDS: BALSAM PERU/CASTOR OIL 60 GM TUBE TP SCH (11:05)
[2024-01-10] MEDS: HONEY 1 APPL/ML TUBE TP SCH (11:05)
[2024-01-10] MEDS: FERROUS SULFATE 325 MG TABLET.DR PEG SCH (11:06)
[2024-01-10] MEDS: alloPURInol 100 MG TABLET PEG SCH (11:06)
--- NOTE | 2024-01-10 11:30 | NUR ---
WOUND CARE STAPLE REMOVAL 13 JOELLEN REMOVED, WOUND CARE PROVIDED
[2024-01-10 12:00] VITALS: BP 105/61; PULSE 116; RESP 19; TEMP 97.8
--- NOTE | 2024-01-10 12:07 | NUR ---
Discharge Planning: Plan is for transfer back to [facility] today. Pending discharge.
--- NOTE | 2024-01-10 12:20 | NUR ---
REPORT GIVEN TO ERLIN CRENSHAW RN. NO FURTHER QUESTIONS. PT WILL BE TRANSPORTED VIA [facility].
--- NOTE | 2024-01-10 13:30 | NUR ---
DISCHARGE PT PIV DC'D PT AND FAMILY GATHERED ALL BELONGINGS PT AND FAMILY HAD NO FURTHER QUESTIONS UPON DISCHARGE PT VERBALIZED UNDERSTANDING OF DISCHARGE INSTRUCTIONS. PT PENDING GERM DRIER FROM [facility]
[2024-01-10] MEDS: EPOETIN ALFA-EPBX (NON-ESRD) 10,000 UNIT/ML VIAL SQ ONE (13:31)
--- NOTE | 2024-01-10 13:50 | NUR ---
PT PICKED UP B Addendum: 01/10/24 at 1443 by CHAN COTA LVN LVN PT PICKED UP BY [facility] TRANSPORTED [facility]IA [facility]
--- NOTE | 2024-01-10 19:43 | PN ---
SUBJECTIVE: This patient has renal failure, suprapubic catheter dysfunction and removal, underlying multiple other comorbidities. The patient has been followed by urologist. No fever, chills or rigors. No cough, expectoration or hemoptysis. No abdominal pain. No nausea or vomiting. No chest pain. No orthopnea or PND. Other systemic review is unchanged. PHYSICAL EXAMINATION: GENERAL: Pale, no other distress or deformities, lying in bed. VITAL SIGNS: Blood pressure is 133/75, pulse 118, respiratory rate is 19. HEENT: Head is atraumatic. Pupils are round and reactive. Sclerae are anicteric. Conjunctivae not pale. Oral mucosa is not dry. NECK: Supple. No masses or bruits. Thyroid is palpable. Neck has no bruits. CHEST: Shows equal thoracic percussion note being resonant in all areas. CARDIAC: Regular rhythm, no rub, no S3 or S4. No parasternal heave. Apical beat is not localized. ABDOMEN: With no guarding or tenderness. Bowel sounds are normoactive. No free fluid. EXTREMITIES: With no edema and no cyanosis or clubbing. LABORATORY DATA: Labs have been reviewed with the lab data showing hemoglobin low up to 9.7. Other electrolytes are reviewed. BUN of 39, creatinine 2. PROBLEMS: Renal failure, anemia, suprapubic catheter malfunction in a patient who has multiple other comorbidities including history of hypertension, prostate cancer, urinary tract infection, thrombocytopenia, anemia, atrial fibrillation, CHF, diabetes. PLAN: The patient is followed by urologist. Continued monitoring of electrolytes and renal function. Labs and x-rays were personally reviewed. Follow up labs as needed. If discharged, will need outpatient followup. The patient was counseled to avoid nonsteroidal drug, nephrotoxics and we will be monitoring closely. Overall condition remained guarded. Thank you for this patient. TID: [id number] RECEIPT: [id number]
== END 2024-01-10 13:50 | DRG 698 ==
LOC: EDH 01:01 → EDHIP 03:17 → 3AH 01-06 00:02
PROVIDERS: ADMIT Internal Medicine; ATTEND Internal Medicine
PROC: 0TPBX0Z Removal of Drainage Device from Bladder, External Approach (ICD-10-PCS; principal; 2024-01-06)
DX: T83.020A Displacement of cystostomy catheter, initial encounter (principal); E43 Unspecified severe protein-calorie malnutrition; N39.0 Urinary tract infection, site not specified; I13.0 Hypertensive heart and chronic kidney disease with heart failure and stage 1 through stage 4 chronic kidney disease, or unspecified chronic kidney disease; N17.9 Acute kidney failure, unspecified; R18.8 Other ascites; K94.23 Gastrostomy malfunction; C22.0 Liver cell carcinoma; D69.6 Thrombocytopenia, unspecified; N18.9 Chronic kidney disease, unspecified; E11.22 Type 2 diabetes mellitus with diabetic chronic kidney disease; I50.9 Heart failure, unspecified; I48.91 Unspecified atrial fibrillation; D70.9 Neutropenia, unspecified; F91.9 Conduct disorder, unspecified; K74.60 Unspecified cirrhosis of liver; M10.9 Gout, unspecified; E78.00 Pure hypercholesterolemia, unspecified; I25.10 Atherosclerotic heart disease of native coronary artery without angina pectoris; B95.8 Unspecified staphylococcus as the cause of diseases classified elsewhere; D63.1 Anemia in chronic kidney disease; Z82.0 Family history of epilepsy and other diseases of the nervous system; Z83.3 Family history of diabetes mellitus; Z68.32 Body mass index [BMI] 32.0-32.9, adult; Z85.05 Personal history of malignant neoplasm of liver; Z88.1 Allergy status to other antibiotic agents; Z85.46 Personal history of malignant neoplasm of prostate; Z86.73 Personal history of transient ischemic attack (TIA), and cerebral infarction without residual deficits; Y73.8 Miscellaneous gastroenterology and urology devices associated with adverse incidents, not elsewhere classified; Y73.2 Prosthetic and other implants, materials and accessory gastroenterology and urology devices associated with adverse incidents
CPT/HCPCS: 36415; 74176; 76000; 80048; 80053; 81001; 82140; 82306; 82607; 82728; 82746; 82948; 83605; 83735; 84100; 84145; 84550; 85025; 85027; 85610; 87086; 87186; 88184; 88185; 88189; 96375; 99285; C1769; G0378; J1200; J1644; J1956; J2919; J3490; Q9967; Q5106